=== PATIENT | female | born 1980 | race Caucasian/White ===

== ENCOUNTER 2016-08-31 10:13 | Emergency (ER) | payer MEDICARE, MEDICAID ==
[2016-08-31 11:24] VITALS: BP 135/83
[2016-08-31] MEDS ORDERED: Albuterol/Ipratropium NEB.SOL* Albuterol 2.5 MG/Ipratropium 0.5 MG 3 ML INH ONE (11:45)
[2016-08-31] MEDS ORDERED: Albuterol/Ipratropium NEB.SOL* Albuterol 2.5 MG/Ipratropium 0.5 MG 3 ML ONE (11:47)
--- NOTE | 2016-08-31 12:22 | UC ---
Anabel Bryan SooYoung, scribed for [facility],Jani Martin MD on 08/31/16 at 1143 . Respiratory Complaint HPI - HPI Summary HPI Summary: NOTE: 36 y/o F with cough and sore throat for week. Vital signs stable, afebrile, pulse ox 99. Pt is a recovering alcoholic, former smoker for 6 years. She has a PMHx: asthma, bronchitis, depression. NURSE'S NOTE: c/o coughing for the past week along with feeling feverish. Sorethroat for the past 24 hrs. [ End ] IN ROOM NOTE: A 36 y/o F presents to [facility] with c/o cough onset 4-5 days ago. Associated mild CP, maxT of 100, sore throat, SOB and ears have been "off." Denies n/v/d. PMHx: PNA. - History of Current Complaint Chief Complaint: UCRespiratory Stated Complaint: COUGH FEVER Time Seen by Provider: 08/31/16 11:22 Hx Obtained From: Patient Hx Last Menstrual Period: 08/03/16 Onset/Duration: Lasting Days, Still Present Severity Currently: Moderate Pain Intensity: 0 - denies pain Pain Scale Used: 0-10 Numeric Associated Signs And Symptoms: Positive: Fever - Allergies/Home Medications Allergies/Adverse Reactions: Allergies Allergy/AdvReac Type Severity Reaction Status Date / Time Amoxicillin [From Augmentin] AdvReac Severe Vomiting Verified 06/28/16 14:12 Clavulanic Acid AdvReac Severe Vomiting Verified 06/28/16 14:12 [From Augmentin] Erythromycin AdvReac Severe STOMACH Verified 06/28/16 14:12 CRAMPS, DIARRHEA PMH/Surg Hx/FS Hx/Imm Hx Previously Healthy: No Endocrine History Of: Denies: Diabetes, Thyroid Disease Cardiovascular History Of: Denies: Cardiac Disorders, Hypertension Respiratory History Of: Reports: Asthma, Bronchitis - HX OF, USUALLY OFTEN IN THE WINTER MONTHS Denies: COPD GI/ History Of: Denies: Ulcer Psychological History Of: Reports: Anxiety, Depression - NO MEDS - Surgical History Surgical History: Yes Surgery Procedure, Year, and Place: 4 x cone biopsies in 2013. at age 3 - ear tubes placed (removed later on), UTERINE POLYP TO BE REMOVED ON 05/01/16 - Family History Known Family History: Positive: Unknown - reports None in-room., Hypertension, Diabetes Negative: Seizure Disorder - Social History Occupation: Employed Full-time Lives: With Family Alcohol Use: None Alcohol Amount: STATES SHE IS RECOVERING ALCOHOLIC Substance Use Type: None Substance Use Comment - Amount & Last Used: IN RECOVERY ETOH/Drugs Smoking Status (MU): Former Smoker Type: Cigarettes Amount Used/How Often: 1/2 PPD FOR ABOUT 10 YEARS Length of Time of Smoking/Using Tobacco: 7 years Have You Smoked in the Last Year: No When Did the Patient Quit Smoking/Using Tobacco: 2009 Review of Systems Constitutional: Fever - maxT of 100 Skin: Negative Eyes: Negative ENT: Sore Throat Respiratory: Shortness Of Breath, Cough Cardiovascular: Chest Pain - mild Gastrointestinal: Negative Genitourinary: Negative Motor: Negative Neurovascular: Negative Musculoskeletal: Negative Neurological: Negative Psychological: Negative All Other Systems Reviewed And Are Negative: Yes Physical Exam Triage Information Reviewed: Yes Appearance: Well-Appearing, No Pain Distress, Well-Nourished Vital Signs: Initial Vital Signs Temp 98.7 F 08/31/16 11:19 Pulse 88 08/31/16 11:19 Resp 18 08/31/16 11:19 BP 135/83 08/31/16 11:19 Pulse Ox 99 08/31/16 11:19 Vital Signs Reviewed: Yes Eyes: Positive: Conjunctiva Clear ENT: Positive: Hearing grossly normal, Pharynx normal, TMs normal. Negative: Muffled/hoarse voice Neck: Positive: Supple, Nontender Respiratory: Positive: Chest non-tender, No respiratory distress, Rhonchi - scattered, Expiration - EXTENDED EXPIRATORY PHASE, Other: - NEG: RALES Cardiovascular: Positive: RRR, No Murmur Abdomen Description: Positive: Nontender, No Organomegaly, Soft Bowel Sounds: Positive: Present Musculoskeletal: Positive: Strength Intact, Other: - GOEL Neurological: Positive: Alert Psychological: Positive: Age Appropriate Behavior Skin: Negative: rashes UC Diagnostic Evaluation - Laboratory O2 Sat by Pulse Oximetry: 99 Re-Evaluation - Re-Evaluation 1 Re-Evaluation Time: 12:09 Change: Improved Comment: Reexamined, pt is more comfortable. Lungs are less tight, breathing is easier and exhalation is more audible. No rhonchi or wheezes appreciated. Respiratory Course/Dx - Differential Dx/Diagnosis Differential Diagnosis/HQI/PQRI: Asthma, Bronchitis, Other - PNA Provider Diagnoses: Bronchitis with bronchospasm. Discharge - Discharge Plan Condition: Stable Disposition: HOME Prescriptions: Albuterol 2.5MG/3ML (0.083%)* [Ventolin 2.5 MG/3 ML NEB.BARBARA*] 2.5 mg INH Q6H # 60 neb.[email or web address] DOXYcycline CAP(*) [DOXYcycline 100MG CAP(*)] 100 mg PO BID #14 cap Prednisone 20 mg PO TID #9 tab MDD 3 Spacer/Aerosol-Holding Chamber [Aerochamber Mv] 1 mis XX Q6HR #1 mis Patient Education Materials: Acute Bronchitis (ED), Bronchospasm (ED) Forms: *Work Release Referrals: Vamshi Camarena MD [Primary Care Provider] - Additional Instructions: WE DISCUSSED: 1, You need to grape picker the nebulizer machine. 2. you have bronchitis with bronchospasm: 2 puffs albuteral, 4 times a day; prednisone; doxycyline for 7 days. 3. no work for 2 days. 4. see below instructions. COUGH, CONGESTION of CHEST, SINUSES OR EARS: The most important goal is to liquefy all the phlegm and get it out of your head and chest. Any illness causing cough, congestion, sore throat or sinus discomfort can be helped by doing the following: STAND UNDER SHOWER STREAM TO LOOSEN SECRETIONS. STAY AWAY FROM ANY SMOKE OR IRRITANTS. WHAT ELSE CAN HELP RELIEVE YOUR SYMPTOMS: GENERAL TYPES OF MEDICINE THAT MAY HELP DECONGESTANTS: helps relieve stuffiness and clears sinuses. Pseudoephedrine ( Sudafed or generic) is effective but you need to ask the pharmacist for it because it may be kept behind the counter. ANTIHISTAMINES: are NOT helpful in many colds and flus because they can worsen sore throat, dry eyes and mouth and cause drowsiness. Examples are diphenhydramine, doxylamine and chlorpheniramine. They can help dry you out if you are having profuse, clear drainage from the nose. EXPECTORANTS: helps thin mucous in the nose and chest, making it easier to clear the fluid out. Expectorants are in most combination cough/cold remedies and should be taken with plenty of water. Guaifenesin is the most common expectorant and it comes in pill or liquid form. Mucinex is an extended release form of guaifenesin. COUGH SUPPRESANT: reduces the body's cough reflex. Dextromethorphan is in over the counter products, but sometimes narcotics such as codeine or hydrocodone are used to suppress cough. SPECIFIC MEDICATIONS: The most important goal is to liquefy all the phlegm and get it out of your head and chest: The following medicines (in prescription form or you can buy them without prescription) may help: To help with cough: DEXTROMETHORPHAN (Vicks, Robitussin, Nyquil and other brands) To help break up phlegm: GUAIFENESIN (Mucinex, Robitussin, other brands) To help clear congestion: PSEUDOEPHEDRINE (Sudafed, Dimetapp, other brands) TRY TO CLEAR NOSE: AFRIN NASAL SPRAY: 2-3 SPRAYS PER NOSTRIL, TWICE A DAY FOR TWO DAYS ONLY. USEFUL WAYS TO FEEL BETTER WITHOUT MEDICATIONS: STAND UNDER SHOWER STREAM TO LOOSEN SECRETIONS. USE A VAPORIZOR. STAY AWAY FROM ANY SMOKE OR IRRITANTS. USE SALINE NASAL SPRAY TO KEEP FLOW OF MUCOUS FROM NOSTRILS AND SINUSES. CONSIDER USING NETI POT TO HELP WITH ALLERGIES AND CONGESTION IN THE NOSE. USE THIS THREE TIMES A WEEK. YOU CAN GET THIS AT [employer] IN [place] OR VARIOUS DRUGSTORES. DRINK LOTS OF WARM FLUIDS USEFUL HOME REMEDIES: WARM WATER GARGLES, WITH TSP OF SALT PER 8 OUNCES OF WATER, GARGLE FOR A FEW SECONDS AND SPIT OUT; GARGLE AND SPIT OUT; EVERY THREE HOURS. AND/OR: WARM WATER OR TEA, HONEY AND LEMON; 2-3 CUPS A DAY. FOR SORE THROAT: KEEP THROAT MOIST WITH LOZENGES; TEA AND HONEY. USE WARM WATER GARGLES 3-4 TIMES A DAY. FOLLOW UP: RE-CHECK IN 1O DAYS, NEEDED, IF YOU ARE NOT IMPROVING. RETURN HERE OR SEE YOUR PHYSICIAN. RE-CHECK SOONER IF INCREASED PAIN OR TEMPERATURE. The documentation as recorded by the Anabel montemayor SooYoung accurately reflects the service I personally performed and the decisions made by me, Jani Carlos MD.
== END 2016-08-31 12:27 | disposition home or self-care (01) ==
LOC: UCEAST 10:13
DX: J40 Bronchitis, not specified as acute or chronic (principal)
CPT/HCPCS: 94640; 99212; A9270-GY; G0463

== ENCOUNTER 2016-09-25 19:22 | Emergency (ER) | payer MEDICARE, MEDICAID ==
[2016-09-25 19:57] VITALS: BP 116/61
--- NOTE | 2016-09-25 20:12 | UC ---
Ear Complaint HPI - HPI Summary HPI Summary: ONE WEEK OF SINUS CONGESTION AND PRESSURE, LEFT SIDED EAR ACHE SINCE THIS AFTERNOON; TUBE IN RIGHT EAR FROM SIMILAR OCCURANCE. NO FEVER. - History of Current Complaint Chief Complaint: UCGeneralIllness Stated Complaint: SINUS CONGESTION, AND EAR ACHE Time Seen by Provider: 09/25/16 19:23 Hx Obtained From: Patient Hx Last Menstrual Period: 09/18/16 Onset/Duration: Sudden Onset, Lasting Hours, Still Present Severity Initially: Moderate Severity Currently: Moderate Associated Signs/Symptoms: Positive: URI Symptoms - Allergies/Home Medications Allergies/Adverse Reactions: Allergies Allergy/AdvReac Type Severity Reaction Status Date / Time Amoxicillin [From Augmentin] AdvReac Severe Vomiting Verified 09/25/16 19:49 Clavulanic Acid AdvReac Severe Vomiting Verified 09/25/16 19:49 [From Augmentin] Erythromycin AdvReac Severe STOMACH Verified 09/25/16 19:49 CRAMPS, DIARRHEA PMH/Surg Hx/FS Hx/Imm Hx Previously Healthy: Yes Endocrine History Of: Denies: Diabetes, Thyroid Disease Cardiovascular History Of: Denies: Cardiac Disorders, Hypertension Respiratory History Of: Reports: Asthma, Bronchitis - HX OF, USUALLY OFTEN IN THE WINTER MONTHS Denies: COPD GI/ History Of: Denies: Ulcer Psychological History Of: Reports: Anxiety, Depression - NO MEDS - Surgical History Surgical History: Yes Surgery Procedure, Year, and Place: 4 x cone biopsies in 2013. at age 3 - ear tubes placed (removed later on), UTERINE POLYP TO BE REMOVED ON 05/01/16 - Family History Known Family History: Positive: Unknown - reports None in-room., Hypertension, Diabetes Negative: Seizure Disorder - Social History Occupation: Employed Full-time Lives: With Family Alcohol Use: None Alcohol Amount: STATES SHE IS RECOVERING ALCOHOLIC Substance Use Type: None Substance Use Comment - Amount & Last Used: IN RECOVERY ETOH/Drugs Smoking Status (MU): Former Smoker Type: Cigarettes Amount Used/How Often: 1/2 PPD FOR ABOUT 10 YEARS Length of Time of Smoking/Using Tobacco: 7 years Have You Smoked in the Last Year: No When Did the Patient Quit Smoking/Using Tobacco: 2009 Review of Systems Constitutional: Negative Skin: Negative Eyes: Negative ENT: Ear Ache, Nasal Discharge Respiratory: Negative Cardiovascular: Negative Gastrointestinal: Negative Genitourinary: Negative Motor: Negative Neurovascular: Negative Musculoskeletal: Negative Neurological: Negative Psychological: Negative All Other Systems Reviewed And Are Negative: Yes Physical Exam Triage Information Reviewed: Yes Appearance: Well-Appearing, No Pain Distress, Well-Nourished Vital Signs: Initial Vital Signs Temp 97.7 F 09/25/16 19:50 Pulse 85 09/25/16 19:50 Resp 18 09/25/16 19:50 BP 116/61 09/25/16 19:50 Pulse Ox 98 09/25/16 19:50 Vital Signs Reviewed: Yes Eye Exam: Normal Eyes: Positive: Conjunctiva Clear ENT: Positive: Hearing grossly normal, Pharynx normal, TM bulging, TM dull, TM red Dental Exam: Normal Neck exam: Normal Respiratory Exam: Normal Respiratory: Positive: Chest non-tender, Lungs clear, Normal breath sounds, No respiratory distress Cardiovascular Exam: Normal Cardiovascular: Positive: RRR, No Murmur, Pulses Normal Abdominal Exam: Normal Abdomen Description: Positive: Nontender, No Organomegaly Musculoskeletal Exam: Normal Musculoskeletal: Positive: Strength Intact, ROM Intact Neurological Exam: Normal Psychological Exam: Normal Psychological: Positive: Normal Response To Family Skin Exam: Normal Ear Complaint Course/Dx - Differential Dx/Diagnosis Differential Diagnosis/HQI/PQRI: Otitis Externa, Otitis Media, Perforated TM, URI Provider Diagnoses: SINUSITIS. OTITIS MEDIA Discharge - Discharge Plan Condition: Stable Disposition: HOME Prescriptions: Azithromycin TAB* [Zithromax TAB (Z-KANE) 250 mg #6 tabs] 250 mg PO DAILY #6 tab Patient Education Materials: Sinusitis (ED), Otitis Media (ED) Referrals: Vamshi Camarena MD [Primary Care Provider] -
== END 2016-09-25 20:15 | disposition home or self-care (01) ==
LOC: UCEAST 19:22
DX: J32.9 Chronic sinusitis, unspecified (principal); H66.92 Otitis media, unspecified, left ear; Z88.1 Allergy status to other antibiotic agents; Z88.0 Allergy status to penicillin; Z87.891 Personal history of nicotine dependence
CPT/HCPCS: 99212; G0463

== ENCOUNTER 2016-11-20 11:09 | Emergency (ER) | payer MEDICARE, MEDICAID ==
[2016-11-20 11:48] VITALS: BP 136/74
[2016-11-20] MEDS ORDERED: Albuterol/Ipratropium NEB.SOL* Albuterol 2.5 MG/Ipratropium 0.5 MG 3 ML INH ONE (13:23)
--- NOTE | 2016-11-20 14:29 | UC ---
Throat Pain/Nasal Pete HPI - HPI Summary HPI Summary: COUGH AND SINUS PRESSURE SINCE 11/16/16. HISTORY OF ASTHMA. NO FEVER. NO RASHES, NO SORE THROAT. NO ABDOMINAL PAIN - History of Current Complaint Chief Complaint: UCRespiratory Stated Complaint: SINUS ISSUE SOB ASTHMA Time Seen by Provider: 11/20/16 12:28 Hx Obtained From: Patient Hx Last Menstrual Period: 2 wks ago Onset/Duration: Gradual Onset, Lasting Days, Still Present Severity: Moderate Pain Intensity: 3 Pain Scale Used: 0-10 Numeric Cough: Nonproductive Associated Signs & Symptoms: Positive: Hoarseness, Sinus Discomfort, Nasal Discharge - Epiglottits Risk Factors Epiglottis Risk Factors: Negative - Allergies/Home Medications Allergies/Adverse Reactions: Allergies Allergy/AdvReac Type Severity Reaction Status Date / Time Amoxicillin [From Augmentin] AdvReac Severe Vomiting Verified 11/20/16 11:49 Clavulanic Acid AdvReac Severe Vomiting Verified 11/20/16 11:49 [From Augmentin] Erythromycin AdvReac Severe STOMACH Verified 11/20/16 11:49 CRAMPS, DIARRHEA PMH/Surg Hx/FS Hx/Imm Hx Previously Healthy: Yes Endocrine History Of: Denies: Diabetes, Thyroid Disease Cardiovascular History Of: Denies: Cardiac Disorders, Hypertension Respiratory History Of: Reports: Asthma, Bronchitis - HX OF, USUALLY OFTEN IN THE WINTER MONTHS Denies: COPD GI/ History Of: Denies: Ulcer Psychological History Of: Reports: Anxiety, Depression - NO MEDS - Surgical History Surgical History: Yes Surgery Procedure, Year, and Place: 4 x cone biopsies in 2013. at age 3 - ear tubes placed (removed later on), UTERINE POLYP TO BE REMOVED ON 05/01/16 - Family History Known Family History: Positive: Unknown - reports None in-room., Hypertension, Diabetes Negative: Seizure Disorder - Social History Occupation: Employed Full-time Lives: With Family Alcohol Use: None Alcohol Amount: STATES SHE IS RECOVERING ALCOHOLIC Substance Use Type: None Substance Use Comment - Amount & Last Used: IN RECOVERY ETOH/Drugs Smoking Status (MU): Former Smoker Type: Cigarettes Amount Used/How Often: 1/2 PPD FOR ABOUT 10 YEARS Length of Time of Smoking/Using Tobacco: 7 years Have You Smoked in the Last Year: No When Did the Patient Quit Smoking/Using Tobacco: 2009 Review of Systems Constitutional: Negative Skin: Negative Eyes: Negative ENT: Ear Ache, Nasal Discharge Respiratory: Cough Cardiovascular: Negative Gastrointestinal: Negative Genitourinary: Negative Motor: Negative Neurovascular: Negative Musculoskeletal: Negative Neurological: Negative Psychological: Negative All Other Systems Reviewed And Are Negative: Yes Physical Exam Triage Information Reviewed: Yes Appearance: No Pain Distress, Well-Nourished, Ill-Appearing - MILD Vital Signs: Initial Vital Signs Temp 98.4 F 11/20/16 11:44 Pulse 90 11/20/16 11:44 Resp 18 11/20/16 11:44 BP 136/74 11/20/16 11:44 Pulse Ox 100 11/20/16 11:44 Eye Exam: Normal ENT: Positive: Hearing grossly normal, TM bulging, TM dull Dental Exam: Normal Neck exam: Normal Neck: Positive: Supple, Nontender, No Lymphadenopathy Respiratory Exam: Normal Respiratory: Positive: Chest non-tender, Lungs clear, Normal breath sounds, No respiratory distress, No accessory muscle use Cardiovascular Exam: Normal Cardiovascular: Positive: RRR Abdominal Exam: Normal Abdomen Description: Positive: Nontender, No Organomegaly Musculoskeletal Exam: Normal Musculoskeletal: Positive: Strength Intact, ROM Intact Neurological Exam: Normal Psychological Exam: Normal Psychological: Positive: Normal Response To Family Skin Exam: Normal Throat Pain/Nasal Course/Dx - Differential Dx/Diagnosis Differential Diagnosis/HQI/PQRI: Pharyngitis, Sinusitis, URI Provider Diagnoses: SINUSITIS Discharge - Discharge Plan Condition: Stable Disposition: HOME Prescriptions: DOXYcycline CAP(*) [DOXYcycline 100MG CAP(*)] 100 mg PO BID #20 cap Patient Education Materials: Sinusitis (ED) Forms: *Work Release Referrals: Vamshi Camarena MD [Primary Care Provider] -
== END 2016-11-20 14:05 | disposition home or self-care (01) ==
LOC: UCEAST 11:09
DX: J02.9 Acute pharyngitis, unspecified (principal); J06.9 Acute upper respiratory infection, unspecified; J45.909 Unspecified asthma, uncomplicated; Z87.891 Personal history of nicotine dependence; Z88.1 Allergy status to other antibiotic agents
CPT/HCPCS: 99212; A9270-GY; G0463

== ENCOUNTER 2016-12-25 09:12 | Emergency (ER) | payer MEDICARE, MEDICAID ==
--- NOTE | 2016-12-25 11:39 | UC ---
Minor Trauma HPI - HPI Summary HPI Summary: While walking on sidewalk pt tripped over young daughter and fell forward, injuring R knee and L thumb. Mostly wants a work note, but having trouble walking. - History of Current Complaint Chief Complaint: UCLowerExtremity Stated Complaint: FELL-RT KNEE, LT THUMB INJ Time Seen by Provider: 12/25/16 11:27 Hx Obtained From: Patient Hx Last Menstrual Period: 12/17/16 ?: No Onset/Duration: Sudden Onset Onset Of Pain: Immediate Severity Initially: Moderate Severity Currently: Moderate Mechanism Of Injury: Fall From A Standing Position Aggravating Factor(s): Ambulation Alleviating Factor(s): Rest Associated Signs And Symptoms: Negative: Loss Of Consciousness, Ecchymosis, Swelling - Allergies/Home Medications Allergies/Adverse Reactions: Allergies Allergy/AdvReac Type Severity Reaction Status Date / Time Amoxicillin [From Augmentin] AdvReac Severe Vomiting Verified 12/25/16 09:26 Clavulanic Acid AdvReac Severe Vomiting Verified 12/25/16 09:26 [From Augmentin] Erythromycin AdvReac Severe STOMACH Verified 12/25/16 09:26 CRAMPS, DIARRHEA Home Medications: Home Medications Ibuprofen [Ibuprofen 200 MG] 400 mg PO Q6H PRN 12/25/16 [History Confirmed 12/25] PMH/Surg Hx/FS Hx/Imm Hx Endocrine History Of: Denies: Diabetes, Thyroid Disease Cardiovascular History Of: Denies: Cardiac Disorders, Hypertension Respiratory History Of: Reports: Asthma, Bronchitis - HX OF, USUALLY OFTEN IN THE WINTER MONTHS Denies: COPD GI/ History Of: Denies: Ulcer Psychological History Of: Reports: Anxiety, Depression - NO MEDS - Surgical History Surgical History: Yes Surgery Procedure, Year, and Place: 5x colon biopsies in 2013. at age 3 - ear tubes placed (removed later on), UTERINE POLYP - Family History Known Family History: Positive: Unknown - reports None in-room., Hypertension, Diabetes Negative: Seizure Disorder - Social History Occupation: Employed Part-time Lives: With Family Alcohol Use: None Alcohol Amount: STATES SHE IS RECOVERING ALCOHOLIC Substance Use Type: None Substance Use Comment - Amount & Last Used: IN RECOVERY ETOH/Drugs Smoking Status (MU): Former Smoker Type: Cigarettes Amount Used/How Often: 1/2 PPD FOR ABOUT 10 YEARS Length of Time of Smoking/Using Tobacco: 7 years Have You Smoked in the Last Year: No When Did the Patient Quit Smoking/Using Tobacco: 2009 Review of Systems Constitutional: Negative Skin: Negative Eyes: Negative ENT: Negative Respiratory: Negative Cardiovascular: Negative Gastrointestinal: Negative Genitourinary: Negative Motor: Negative Neurovascular: Negative Musculoskeletal: Arthralgia Neurological: Negative Psychological: Negative All Other Systems Reviewed And Are Negative: Yes Physical Exam Triage Information Reviewed: Yes Appearance: Well-Appearing, Well-Nourished, Pain Distress - with movement Vital Signs: Initial Vital Signs Temp 97.3 F 12/25/16 09:20 Pulse 84 12/25/16 09:20 Resp 16 12/25/16 09:20 BP 120/77 12/25/16 09:20 Pulse Ox 98 12/25/16 09:20 Vital Signs Reviewed: Yes Eye Exam: Normal Eyes: Positive: Conjunctiva Clear ENT: Positive: Pharynx normal, Other: - PE tubes in place bilat Dental Exam: Other - edentulous Neck exam: Normal Neck: Positive: Supple, Nontender, No Lymphadenopathy Respiratory Exam: Normal Respiratory: Positive: Chest non-tender, Lungs clear, Normal breath sounds, No respiratory distress, No accessory muscle use Cardiovascular Exam: Normal Cardiovascular: Positive: RRR, No Murmur Musculoskeletal Exam: Other - Tender over R patella Musculoskeletal: Positive: ROM Limited @ - L thumb, R knww Neurological Exam: Normal Neurological: Positive: Alert Psychological Exam: Normal Skin Exam: Other - abrasions to R knee Minor Trauma Course/Dx - Differential Dx/Diagnosis Provider Diagnoses: R knee contusion. L thumb sprain Discharge - Discharge Plan Condition: Stable Disposition: HOME Patient Education Materials: Contusion in Adults (ED), Finger Sprain (ED) Forms: *Work Release Referrals: Vamshi Camarena MD [Primary Care Provider] - 2 Weeks Additional Instructions: If you do not have full improvement in the next 7-10 days, please follow up with your primary care provider.
[2016-12-25 11:56] VITALS: BP 124/73
--- NOTE | 2016-12-25 12:03 | RAD ---
HISTORY: Left hand trauma COMPARISONS: None VIEWS: 3, Frontal, lateral, and oblique views of the first digit of the left hand FINDINGS: BONE DENSITY: Normal. BONES: There is no displaced fracture. JOINTS: There is no arthropathy. ALIGNMENT: There is no dislocation. SOFT TISSUES: Unremarkable. OTHER FINDINGS: None. IMPRESSION: NO ACUTE OSSEOUS INJURY. IF SYMPTOMS PERSIST, RECOMMEND REPEAT IMAGING.
--- NOTE | 2016-12-25 12:04 | RAD ---
HISTORY: Right knee trauma COMPARISONS: February 22, 2012 VIEWS: 4, Frontal, lateral, axial, and oblique views of the right knee FINDINGS: BONE DENSITY: Normal. BONES: There is no displaced fracture. 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 There is no suprapatellar joint effusion or lipohemarthrosis. ALIGNMENT: There is no dislocation. SOFT TISSUES: Unremarkable. OTHER FINDINGS: None. IMPRESSION: NO ACUTE OSSEOUS INJURY. IF SYMPTOMS PERSIST, RECOMMEND REPEAT IMAGING.
== END 2016-12-25 12:12 | disposition home or self-care (01) ==
LOC: UCEAST 09:12
DX: S80.01XA Contusion of right knee, initial encounter (principal); S63.602A Unspecified sprain of left thumb, initial encounter; W01.0XXA Fall on same level from slipping, tripping and stumbling without subsequent striking against object, initial encounter; Y93.01 Activity, walking, marching and hiking; Y92.480 Sidewalk as the place of occurrence of the external cause; Z88.1 Allergy status to other antibiotic agents; F41.8 Other specified anxiety disorders; Z87.891 Personal history of nicotine dependence
CPT/HCPCS: 99213; G0463

== ENCOUNTER 2017-03-16 10:35 | Emergency (ER) | payer MEDICARE, MEDICAID ==
[2017-03-16 10:41] VITALS: BP 114/75
[2017-03-16] MEDS ORDERED: Ibuprofen TAB* 200 MG PO ONE (11:09)
--- NOTE | 2017-03-16 11:19 | UC ---
Ear Complaint HPI - HPI Summary HPI Summary: Pt present with pain and pressure in right ear increasing x 3 days, nasal congestion. Pt reports tactile temp. Pt has taken Motrin with mild relief. pt reports frontal and max harrison. no vision changes. no n/v/d. Pt with h/o recurrent OM - states feels similar. No cp, sob. no cough. No sore throat. 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 - History of Current Complaint Chief Complaint: UCEar Stated Complaint: EAR PAIN Time Seen by Provider: 03/16/17 10:49 Hx Obtained From: Patient Hx Last Menstrual Period: 03/10/17 ?: No Onset/Duration: Gradual Onset Severity Initially: Mild Severity Currently: Moderate Pain Intensity: 5 Pain Scale Used: 0-10 Numeric Alleviating Factors: OTC Meds - Motri n - Allergies/Home Medications Allergies/Adverse Reactions: Allergies Allergy/AdvReac Type Severity Reaction Status Date / Time Amoxicillin [From Augmentin] AdvReac Severe Vomiting Verified 03/16/17 10:41 Clavulanic Acid AdvReac Severe Vomiting Verified 03/16/17 10:41 [From Augmentin] Erythromycin AdvReac Severe STOMACH Verified 03/16/17 10:41 CRAMPS, DIARRHEA PMH/Surg Hx/FS Hx/Imm Hx Previously Healthy: Yes Respiratory History: Asthma Cancer History: Cervical Cancer Other Cancer History: cervical - Surgical History Surgical History: Yes Surgery Procedure, Year, and Place: 5x colon biopsies in 2013. at age 3 - ear tubes placed (removed later on), UTERINE POLYP - Family History Known Family History: Positive: Hypertension, Diabetes Negative: Seizure Disorder - Social History Occupation: Employed Full-time Lives: With Family Alcohol Use: None Alcohol Amount: STATES SHE IS RECOVERING ALCOHOLIC Substance Use Type: None, Marijuana - h/o Substance Use Comment - Amount & Last Used: IN RECOVERY ETOH/Drugs Smoking Status (MU): Former Smoker Type: Cigarettes Amount Used/How Often: 1/2 PPD FOR ABOUT 10 YEARS Length of Time of Smoking/Using Tobacco: 7 years Have You Smoked in the Last Year: No When Did the Patient Quit Smoking/Using Tobacco: 2009 Review of Systems Constitutional: Negative Skin: Negative Eyes: Negative ENT: Ear Ache, Sinus Congestion, Sinus Pain/Tenderness Respiratory: Negative Cardiovascular: Negative Gastrointestinal: Negative Genitourinary: Negative Motor: Negative Neurovascular: Negative Musculoskeletal: Negative Neurological: Negative Psychological: Negative All Other Systems Reviewed And Are Negative: Yes Physical Exam Triage Information Reviewed: Yes Appearance: Well-Appearing, No Pain Distress, Well-Nourished Vital Signs: Initial Vital Signs Temp 97.0 F 03/16/17 10:36 Pulse 103 03/16/17 10:36 Resp 18 03/16/17 10:36 BP 114/75 03/16/17 10:36 Pulse Ox 100 03/16/17 10:36 Vital Signs Reviewed: Yes Eye Exam: Normal Eyes: Positive: Conjunctiva Clear. Negative: Discharge ENT: Positive: Hearing grossly normal, Pharynx normal, Nasal congestion, Other: - right TM - tympanostomy tube lying in external end of canal removed with alligator forceps TM examined + erythema, left TM wnl + TTPM max sinus + fluid turbinates inflammed and boggy + PND mmoist No exudate Dental Exam: Normal Neck exam: Normal Neck: Positive: Supple Respiratory Exam: Normal Respiratory: Positive: Chest non-tender, Lungs clear, Normal breath sounds Cardiovascular Exam: Normal Cardiovascular: Positive: RRR, No Murmur Abdominal Exam: Normal Abdomen Description: Positive: Nontender, No Organomegaly Musculoskeletal Exam: Normal Neurological Exam: Normal Psychological Exam: Normal Skin Exam: Normal Ear Complaint Course/Dx - Course Course Of Treatment: Pt with right OM and sinusitis. Pt with tymponsomty tube loose in canal - removed with alligator forceps without difficulty. Will start omnicef (amox causes vomiting only). flonase. motrin/apap. hydrate. rest. pcp f/u - Differential Dx/Diagnosis Provider Diagnoses: foreign body ear. otitis media. sinusitis Discharge - Discharge Plan Condition: Stable Disposition: HOME Prescriptions: Cefdinir [Cefdinir 300 MG CAP] 300 mg PO BID #20 cap Fluticasone NASAL * [Flonase *] 2 spray BOTH NARES DAILY #1 spray Patient Education Materials: Sinusitis (ED), Otitis Media (ED) Forms: *Work Release Referrals: Vamshi Camarena MD [Primary Care Provider] - Additional Instructions: - Stay well hydrated. Drink plenty of non-alcoholic, non-caffinated beverages. - Take antibiotics as prescribed until gone - USe nasal spray as prescribed - After you have been on antibiotics for 2 days - change your toothbrush and your pillowcase. These infections are spread by secretions - do NOT share eating or drinking utensils - clean items you share with other people such as cell phones, computer mouse, TV remote, computer tablets, etc - Alternate ibuprofen (Advil, Motrin) 600mg and Tylenol every 3 hours for pain or fever. Take with food. Do NOT take for more than 4-5 days. - Call your doctor to schedule a follow-up appointment. Contact your doctor or return with questions or concerns
== END 2017-03-16 11:16 | disposition home or self-care (01) ==
LOC: UCEAST 10:35
DX: T16.1XXA Foreign body in right ear, initial encounter (principal); H66.91 Otitis media, unspecified, right ear; J32.9 Chronic sinusitis, unspecified; Z87.891 Personal history of nicotine dependence; F10.21 Alcohol dependence, in remission
CPT/HCPCS: 99212; A9270-GY; G0463

== ENCOUNTER 2017-04-05 18:36 | Emergency (ER) | payer MEDICARE, MEDICAID ==
[2017-04-05 18:46] VITALS: BP 132/80
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
== END 2017-04-05 20:10 | disposition home or self-care (01) ==
LOC: UCEAST 18:36
DX: J32.9 Chronic sinusitis, unspecified (principal); H66.91 Otitis media, unspecified, right ear; G80.9 Cerebral palsy, unspecified; J45.909 Unspecified asthma, uncomplicated; Z87.440 Personal history of urinary (tract) infections; Z88.3 Allergy status to other anti-infective agents; F41.9 Anxiety disorder, unspecified; F32.9 Major depressive disorder, single episode, unspecified; Z87.891 Personal history of nicotine dependence
CPT/HCPCS: 99212; G0463

== ENCOUNTER 2017-05-24 17:14 | Emergency (ER) | payer MEDICARE, MEDICAID ==
[2017-05-24 17:40] VITALS: BP 119/52
[2017-05-24] MEDS ORDERED: Ipratropium 0.5MG/2.5ML NEB* 0.5 MG/2.5 ML NEB.SOLN INH ONE (18:46)
[2017-05-24] MEDS ORDERED: Albuterol 2.5 MG/3 ML NEB.SOL* (0.083%) INH ONE ×2 (18:46→18:51)
[2017-05-24] MEDS ORDERED: predniSONE TAB* 20 MG PO ONE (18:51)
--- NOTE | 2017-05-24 18:55 | UC ---
Respiratory Complaint HPI - HPI Summary HPI Summary: 37 yo female with cough/wheezing x 3 days - History of Current Complaint Chief Complaint: UCRespiratory Stated Complaint: COUGH,ASTHMA,CONGESTION Time Seen by Provider: 05/24/17 18:42 Hx Obtained From: Patient Hx Last Menstrual Period: 04/30/17 Onset/Duration: Gradual Onset Timing: Constant Severity Initially: Moderate Severity Currently: Moderate Pain Intensity: 2 Character: Cough: Productive Aggravating Factors: Exertion, Deep Breaths Alleviating Factors: Bronchodilator Associated Signs And Symptoms: Positive: Wheezing, Nasal Congestion, Hoarseness - Allergies/Home Medications Allergies/Adverse Reactions: Allergies Allergy/AdvReac Type Severity Reaction Status Date / Time Amoxicillin [From Augmentin] AdvReac Severe Vomiting Verified 05/24/17 17:41 Clavulanic Acid AdvReac Severe Vomiting Verified 05/24/17 17:41 [From Augmentin] Erythromycin AdvReac Severe STOMACH Verified 05/24/17 17:41 CRAMPS, DIARRHEA PMH/Surg Hx/FS Hx/Imm Hx Previously Healthy: Yes Respiratory History: Asthma, Bronchitis - Surgical History Surgical History: Yes Surgery Procedure, Year, and Place: 5x colon biopsies in 2013. at age 3 - ear tubes placed (removed later on), UTERINE POLYP - Family History Known Family History: Positive: Hypertension, Diabetes Negative: Seizure Disorder - Social History Alcohol Use: None Alcohol Amount: STATES SHE IS RECOVERING ALCOHOLIC off for over 10 years now Substance Use Type: None Substance Use Comment - Amount & Last Used: former marijuana Smoking Status (MU): Former Smoker Type: Cigarettes Amount Used/How Often: 1/2 PPD FOR ABOUT 10 YEARS Length of Time of Smoking/Using Tobacco: 7 years Have You Smoked in the Last Year: No When Did the Patient Quit Smoking/Using Tobacco: 2009 Review of Systems Constitutional: Negative Skin: Negative Eyes: Negative ENT: Nasal Discharge Respiratory: Cough Cardiovascular: Negative Gastrointestinal: Negative Genitourinary: Negative Motor: Negative Neurovascular: Negative Musculoskeletal: Negative Neurological: Negative Psychological: Negative Is Patient Immunocompromised?: No All Other Systems Reviewed And Are Negative: Yes Physical Exam Triage Information Reviewed: Yes Appearance: Well-Appearing, No Pain Distress, Well-Nourished Vital Signs: Initial Vital Signs Temp 97.5 F 05/24/17 17:38 Pulse 105 05/24/17 17:38 Resp 18 05/24/17 17:38 BP 119/52 05/24/17 17:38 Pulse Ox 100 05/24/17 17:38 Eye Exam: Normal ENT: Positive: Hearing grossly normal, Nasal congestion. Negative: TMs normal - both TMs scarred, Tonsillar swelling, Tonsillar exudate, Trismus, Muffled/ hoarse voice Dental: Positive: Other: - no upper teeth Neck: Positive: Supple, Nontender, No Lymphadenopathy Respiratory: Positive: No respiratory distress, No accessory muscle use, Wheezing Cardiovascular: Positive: RRR, No Murmur, Tachycardia Musculoskeletal: Positive: ROM Intact, No Edema Neurological: Positive: Alert Psychological Exam: Normal Skin Exam: Normal UC Diagnostic Evaluation - Laboratory O2 Sat by Pulse Oximetry: 100 - normal/not hypoxic Re-Evaluation - Re-Evaluation First Eval Re-Evaluation Time: 19:13 Change: Improved - subjectively much improved/wheezes deminished Respiratory Course/Dx - Differential Dx/Diagnosis Provider Diagnoses: acute bronchitis with bronchospasm Discharge - Discharge Plan Condition: Stable Disposition: HOME Prescriptions: Amoxicillin PO (*) [Amoxicillin 875 MG (*)] 875 mg PO BID #20 tab Prednisone [Deltasone] 40 mg PO DAILY #10 tab Patient Education Materials: Acute Bronchitis (ED) Forms: *Work Release Referrals: Vamshi Camarena MD [Primary Care Provider] - 4 Days (if not better)
== END 2017-05-24 19:28 | disposition home or self-care (01) ==
LOC: UCEAST 17:14
DX: J20.9 Acute bronchitis, unspecified (principal); Z88.1 Allergy status to other antibiotic agents; Z88.8 Allergy status to other drugs, medicaments and biological substances
CPT/HCPCS: 99212; G0463; J7512; J7644

== ENCOUNTER 2017-06-25 13:34 | Emergency (ER) | payer MEDICARE, MEDICAID ==
[2017-06-25 13:48] VITALS: BP 122/75
--- NOTE | 2017-06-25 14:00 | UC ---
UC General HPI - HPI Summary HPI Summary: 1. ONSET OF DYSURIA AND FREQUENCY YESTERDAY. NO FEVER, BACK PAIN OR NAUSEA. 2. 2 WEEKS OF PAINFUL RED AREA ON LEFT CALF. HAS BEEN SOAKING IT. NO DRAINAGE. NO FEVER. IS TENDER. 3. 5 DAYS OF COUGH AND CONGESTION. NO FEVER, ST, EAR PAIN, N/V/D. - History of Current Complaint Chief Complaint: UCSkin Stated Complaint: COUGH,BOIL ON LEG,POSS UTI Time Seen by Provider: 06/25/17 13:48 Hx Obtained From: Patient Hx Last Menstrual Period: 05/24/17 Onset/Duration: Gradual Onset Timing: Constant Onset Severity: Moderate Current Severity: Moderate Pain Intensity: 5 - Allergy/Home Medications Allergies/Adverse Reactions: Allergies Allergy/AdvReac Type Severity Reaction Status Date / Time Amoxicillin [From Augmentin] AdvReac Severe Vomiting Verified 06/25/17 13:38 Clavulanic Acid AdvReac Severe Vomiting Verified 06/25/17 13:38 [From Augmentin] Erythromycin AdvReac Severe STOMACH Verified 06/25/17 13:38 CRAMPS, DIARRHEA PMH/Surg Hx/FS Hx/Imm Hx - Additional Past Medical History Additional PMH: CEREBRAL PALSY - MILD Respiratory History: Asthma Psychological History: Depression - Surgical History Surgical History: Yes Surgery Procedure, Year, and Place: 5x colon biopsies in 2013. at age 3 - ear tubes placed (removed later on), UTERINE POLYP - Family History Known Family History: Positive: Hypertension, Diabetes Negative: Seizure Disorder - Social History Alcohol Use: None Alcohol Amount: STATES SHE IS RECOVERING ALCOHOLIC off for over 10 years now Substance Use Type: None Substance Use Comment - Amount & Last Used: former marijuana Smoking Status (MU): Former Smoker Type: Cigarettes Amount Used/How Often: 1/2 PPD FOR ABOUT 10 YEARS Length of Time of Smoking/Using Tobacco: 7 years Have You Smoked in the Last Year: No When Did the Patient Quit Smoking/Using Tobacco: 2009 - Immunization History Most Recent Influenza Vaccination: 2016 Review of Systems Constitutional: Negative Skin: Other - ABSCESS ENT: Nasal Discharge Respiratory: Cough Cardiovascular: Negative Gastrointestinal: Negative Genitourinary: Dysuria, Frequency, Urgency All Other Systems Reviewed And Are Negative: Yes Physical Exam Triage Information Reviewed: Yes Appearance: Well-Appearing, No Pain Distress, Well-Nourished Vital Signs: Initial Vital Signs Temp 97.4 F 06/25/17 13:39 Pulse 94 06/25/17 13:39 Resp 18 06/25/17 13:39 BP 122/75 06/25/17 13:39 Pulse Ox 100 06/25/17 13:39 Vital Signs Reviewed: Yes Eyes: Positive: Conjunctiva Clear ENT: Positive: Hearing grossly normal, Pharynx normal, TMs normal Neck: Positive: Supple, Nontender, No Lymphadenopathy Respiratory Exam: Normal Cardiovascular Exam: Normal Abdomen Description: Positive: Nontender, Soft. Negative: CVA Tenderness (R), CVA Tenderness (L), Distended, Guarding Musculoskeletal: Positive: No Edema Neurological: Positive: Alert Psychological: Positive: Age Appropriate Behavior Skin: Positive: Other - 5CM X 4CM AREA OF ERYTHEMA LEFT CALF WITH CENTRAL AREA OF INDURATION. NO FLUCTUANCE OR DRAINAGE. IS TTP. Diagnostics - Laboratory Diagnostic Studies Completed/Ordered: URINE DIP SP. GR. 1.025, 1+ LEUKS, TRACE BLOOD Course/Dx - Differential Dx - Multi-Symptom Provider Diagnoses: 1. UTI. 2. ABSCESS LEFT CALF. 3. ACUTE URI Discharge - Discharge Plan Condition: Stable Disposition: HOME Prescriptions: Sulfamethox/Trimethoprim DS* [Bactrim DS 800/160 TAB*] 1 tab PO BID #14 tab Patient Education Materials: Urinary Tract Infection in Women (ED), Upper Respiratory Infection (ED), Abscess (ED) Forms: *Work Release Referrals: Vamshi Camarena MD [Primary Care Provider] - If Needed Additional Instructions: URINE SENT FOR CULTURE. WE WILL CALL YOU IF WE NEED TO CHANGE YOUR MEDICATION. BE SURE TO STAY WELL HYDRATED. THE ANTIBIOTIC SHOULD ALSO COVER FOR YOUR ABSCESS. IT IS NOT CURRENTLY SUITABLE FOR DRAINAGE. WARM/HOT COMPRESSES/SOAKS AT LEAST 4 TIMES DAILY. YOUR UPPER RESPIRATORY SYMPTOMS ARE LIKELY VIRALLY MEDIATED AND SHOULD RESOLVE ON THEIR OWN WITH TIME. REST, HYDRATE, OTC MEDS NEEDED. TAKE THE BACTRIM PRESCRIBED FOR YOUR OTHER CONDITIONS. SEEK FOLLOW-UP IF YOU ARE NOT IMPROVING OVER THE NEXT 1-2 WEEKS.
== END 2017-06-25 14:20 | disposition home or self-care (01) ==
LOC: UCEAST 13:34
DX: N39.0 Urinary tract infection, site not specified (principal); B96.20 Unspecified Escherichia coli [E. coli] as the cause of diseases classified elsewhere; L02.416 Cutaneous abscess of left lower limb; J06.9 Acute upper respiratory infection, unspecified; G80.9 Cerebral palsy, unspecified; J45.909 Unspecified asthma, uncomplicated; F32.9 Major depressive disorder, single episode, unspecified; Z88.1 Allergy status to other antibiotic agents; Z87.891 Personal history of nicotine dependence
CPT/HCPCS: 81003; 87077; 87086; 87186; 99212; G0463

== ENCOUNTER 2017-08-18 09:39 | Emergency (ER) | payer MEDICARE, MEDICAID ==
--- NOTE | 2017-08-18 10:53 | UC ---
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 [email or web address] -no known injury on Wednesday (2 days ago) had pain in knee with swelling - History of Current Complaint Hx Obtained From: Patient Hx Last Menstrual Period: 05/24/17 ?: No Onset/Duration: Sudden Onset, Lasting Days - 2 Severity Initially: Moderate Severity Currently: Moderate Character: Aching Aggravating Factor(s): Movement, Weight Bearing Alleviating Factor(s): Rest, Position Associated Signs And Symptoms: Positive: Negative Able to Bear Weight: Yes <Lisa Spencer - Last Filed: 08/19/17 21:59> <Kirstie Dumont - Last Filed: 08/20/17 08:47> - History of Current Complaint Chief Complaint: UCLowerExtremity Stated Complaint: RIGHT KNEE SWOLLEN Time Seen by Provider: 08/18/17 10:46 - Allergies/Home Medications Allergies/Adverse Reactions: Allergies Allergy/AdvReac Type Severity Reaction Status Date / Time Amoxicillin [From Augmentin] AdvReac Severe Vomiting Verified 08/18/17 10:01 Clavulanic Acid AdvReac Severe Vomiting Verified 08/18/17 10:01 [From Augmentin] Erythromycin AdvReac Severe STOMACH Verified 08/18/17 10:01 CRAMPS, DIARRHEA PMH/Surg Hx/FS Hx/Imm Hx Previously Healthy: Yes - Surgical History Surgical History: Yes Surgery Procedure, Year, and Place: 5x colon biopsies in 2013. at age 3 - ear tubes placed (removed later on), UTERINE POLYP - Family History Known Family History: Positive: Hypertension, Diabetes Negative: Seizure Disorder - Social History Occupation: Employed Full-time Lives: With Family Alcohol Use: None Alcohol Amount: hx of etoh abuse Substance Use Type: None Substance Use Comment - Amount & Last Used: former marijuana Smoking Status (MU): Former Smoker Type: Cigarettes Amount Used/How Often: 1/2 PPD FOR ABOUT 10 YEARS Length of Time of Smoking/Using Tobacco: 7 years Have You Smoked in the Last Year: No When Did the Patient Quit Smoking/Using Tobacco: 2009 - Immunization History Most Recent Influenza Vaccination: 2015 <Lisa Spencer - Last Filed: 08/19/17 21:59> Review of Systems Constitutional: Negative Skin: Negative Eyes: Negative ENT: Negative Respiratory: Negative Cardiovascular: Negative Gastrointestinal: Negative Genitourinary: Negative Motor: Negative Neurovascular: Negative Musculoskeletal: Arthralgia - left knee Neurological: Negative Psychological: Negative Is Patient Immunocompromised?: No All Other Systems Reviewed And Are Negative: Yes <Lisa Spencer - Last Filed: 08/19/17 21:59> Physical Exam Triage Information Reviewed: Yes Appearance: Well-Appearing, No Pain Distress, Obese Vital Signs: Initial Vital Signs Temp 98 F 08/18/17 10:03 Pulse 80 08/18/17 10:03 Resp 16 08/18/17 10:03 BP 114/54 08/18/17 10:03 Pulse Ox 100 08/18/17 10:03 Vital Signs Reviewed: Yes Eye Exam: Normal Eyes: Positive: Conjunctiva Clear ENT Exam: Normal ENT: Positive: Normal ENT inspection, Hearing grossly normal, Pharynx normal. Negative: Nasal congestion, Tonsillar swelling, Tonsillar exudate, Trismus, Muffled voice Dental Exam: Normal Neck exam: Normal Neck: Positive: Supple, Nontender Respiratory Exam: Normal Respiratory: Positive: Chest non-tender, No respiratory distress, No accessory muscle use Cardiovascular Exam: Normal Cardiovascular: Positive: RRR, Pulses Normal, Brisk Capillary Refill Musculoskeletal Exam: Normal Musculoskeletal: Positive: ROM Intact, Strength Limited @ - left knee, Edema @ - left knee Neurological Exam: Normal Neurological: Positive: Alert, Muscle Tone Normal Psychological Exam: Normal Skin Exam: Normal <Lisa Spencer - Last Filed: 08/19/17 21:59> Vital Signs: Initial Vital Signs Temp 98 F 08/18/17 10:03 Pulse 80 08/18/17 10:03 Resp 16 08/18/17 10:03 BP 114/54 08/18/17 10:03 Pulse Ox 100 08/18/17 10:03 <Kirstie Dumont - Last Filed: 08/20/17 08:47> Diagnostics - Radiology No standard instances Xray Interpretation: Positive (See Comments) - joint effusion Radiology Interpretation Completed By: Radiologist <Lisa Spencer - Last Filed: 08/19/17 21:59> Knee Pain Course/Dx - Course Course Of Treatment: [place] wrap crutches, non weight bearing patient prefers to work and can work setting down, NSAIDS, follow with orthopedic MD - Differential Dx/Diagnosis Provider Diagnoses: Left knee joint effusion <Lisa Spencer - Last Filed: 08/19/17 21:59> Discharge <Lisa Spencer - Last Filed: 08/19/17 21:59> <Kirstie Dumont - Last Filed: 08/20/17 08:47> - Discharge Plan Condition: Stable Disposition: HOME Prescriptions: Ibuprofen TAB* [Motrin TAB* 600 MG] 600 mg PO Q6H PRN #40 tab PRN Reason: pain Patient Education Materials: Crutch Instructions (ED), Swollen Knee Joint (ED) Forms: *Work Release Referrals: Isidra Murphy MD [Medical Doctor] - 5 Days Attestation Statement User Type: Provider - I was available for consult. This patient was seen by the [facility]. The patient was not presented to, seen by, or examined by me. -Milad <Kirstie uDmont - Last Filed: 08/20/17 08:47>
--- NOTE | 2017-08-18 11:35 | RAD ---
INDICATION: Left knee pain and swelling. TECHNIQUE: 4 views of the left knee were obtained. FINDINGS: The bones are normal alignment. There is a moderate joint effusion present. No fracture is seen. There is a small lucent lesion in the proximal fibular metaphysis with a faint sclerotic margin likely a benign process. Joint spaces appear maintained. IMPRESSION: JOINT EFFUSION.
[2017-08-18 11:47] VITALS: BP 120/65
== END 2017-08-18 12:16 | disposition home or self-care (01) ==
LOC: UCEAST 09:39
DX: M25.462 Effusion, left knee (principal); Z88.3 Allergy status to other anti-infective agents; F12.90 Cannabis use, unspecified, uncomplicated; Z87.891 Personal history of nicotine dependence; E66.9 Obesity, unspecified
CPT/HCPCS: 99212; G0463

== ENCOUNTER 2017-09-07 09:59 | Emergency (ER) | payer MEDICARE, MEDICAID ==
--- OUTSIDE RECORDS SUMMARY | 2017-09-07 10:11 | XMS REPORT ---
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 ETOH Use Denies alcohol use Smoking Patient is a former smoker Exercise Type/Frequency Does not exercise Allergies, Adverse Reactions, Alerts Date Description Reaction Status Severity Comments 08/26/2017 NKDA active Medications Medication Date Status Form Strength Qnty SIG Indications Ordering Provider Ibuprofen 00/00/000 Active Tablets 600mg take 1 Unknown 0 tablet by mouth every 6 hours if needed for pain Vital Signs Date Vital Result Comment 08/26/2017 Height 62 inches 5'2" Weight 160.00 lb BP Systolic 129 mmHg BP Diastolic 80 mmHg Respiratory Rate 15 /min Pain Level 6 BMI (Body Mass Index) 29.3 kg/m2 Results Description No Information Procedures Date CPT Code Description Status 08/26/2017 93837 Inject/Drain Joint/Bursa Major Completed Plan of Care Future Appointment(s):09/23/2017 1:00 pm - Rj Fuller MD at [facility]08/26/2017 - Rj Fuller, [id number] Pain in right kneeFollow up:Follow up: 1 months as needed
--- NOTE | 2017-09-07 11:25 | UC ---
Respiratory Complaint HPI - HPI Summary HPI Summary: 4 DAYS OF COUGH, CONGESTION, N/V, SUBJECTIVE FEVER, MYALGIAS, FATIGUE, ST AND OVERALL MALAISE. NO FLU SHOT THIS SEASON. - History of Current Complaint Chief Complaint: UCRespiratory Stated Complaint: COUGH VOMITING Time Seen by Provider: 09/07/17 11:17 Hx Obtained From: Patient Hx Last Menstrual Period: 08/31/17 Onset/Duration: Gradual Onset, Lasting Days, Still Present Timing: Constant Severity Initially: Moderate Severity Currently: Moderate Pain Intensity: 7 Pain Scale Used: 0-10 Numeric Character: Cough: Nonproductive Aggravating Factors: Nothing Alleviating Factors: Nothing Associated Signs And Symptoms: Positive: Fever, URI, Nasal Congestion, Hoarseness - Allergies/Home Medications Allergies/Adverse Reactions: Allergies Allergy/AdvReac Type Severity Reaction Status Date / Time Amoxicillin [From Augmentin] AdvReac Severe Vomiting Verified 09/07/17 10:09 Clavulanic Acid AdvReac Severe Vomiting Verified 08/18/17 10:01 [From Augmentin] Erythromycin AdvReac Severe STOMACH Verified 08/18/17 10:01 CRAMPS, DIARRHEA PMH/Surg Hx/FS Hx/Imm Hx - Additional Past Medical History Additional PMH: CEREBRAL PALSY Respiratory History: Asthma Psychological History: Depression - Surgical History Surgical History: Yes Surgery Procedure, Year, and Place: 5x colon biopsies in 2013. at age 3 - ear tubes placed (removed later on), UTERINE POLYP - Family History Known Family History: Positive: Hypertension, Diabetes Negative: Seizure Disorder - Social History Alcohol Use: None Alcohol Amount: hx of etoh abuse Substance Use Type: None Substance Use Comment - Amount & Last Used: former marijuana Smoking Status (MU): Former Smoker Type: Cigarettes Amount Used/How Often: 1/2 PPD FOR ABOUT 10 YEARS Length of Time of Smoking/Using Tobacco: 7 years Have You Smoked in the Last Year: No When Did the Patient Quit Smoking/Using Tobacco: 2009 - Immunization History Most Recent Influenza Vaccination: 2016 Review of Systems Constitutional: Fever, Fatigue ENT: Sore Throat, Ear Ache, Nasal Discharge Respiratory: Cough Cardiovascular: Negative Gastrointestinal: Vomiting, Nausea Genitourinary: Negative Musculoskeletal: Myalgia All Other Systems Reviewed And Are Negative: Yes Physical Exam Triage Information Reviewed: Yes Appearance: No Pain Distress, Well-Nourished, Ill-Appearing - MOD Vital Signs: Initial Vital Signs Temp 98 F 09/07/17 10:10 Pulse 111 09/07/17 10:10 Resp 20 09/07/17 10:10 Pulse Ox 100 09/07/17 10:10 Eyes: Positive: Conjunctiva Clear ENT: Positive: Hearing grossly normal, Pharynx normal, TMs normal Neck: Positive: Supple, Nontender, No Lymphadenopathy Respiratory Exam: Normal Cardiovascular: Positive: Tachycardia Abdomen Description: Positive: Soft Musculoskeletal: Positive: No Edema Neurological: Positive: Alert Psychological: Positive: Age Appropriate Behavior Skin: Negative: rashes UC Diagnostic Evaluation - Laboratory O2 Sat by Pulse Oximetry: 100 Diagnostic Studies Comment: FLU SWAB NEGATIVE Respiratory Course/Dx - Differential Dx/Diagnosis Provider Diagnoses: ACUTE VIRAL SYNDROME Discharge - Discharge Plan Condition: Stable Disposition: HOME Prescriptions: Albuterol 2.5MG/3ML (0.083%)* [Ventolin 2.5 MG/3 ML NEB.BARBARA*] 2.5 mg INH Q4H PRN #1 box PRN Reason: Wheezing Azithromycin 500 mg PO DAILY #5 tab Patient Education Materials: Viral Syndrome (ED) Forms: *Work Release Referrals: Vamshi Camarena MD [Primary Care Provider] - If Needed Additional Instructions: FLU TEST NEGATIVE YOUR SYMPTOMS ARE LIKELY VIRALLY MEDIATED AND SHOULD RESOLVE ON THEIR OWN WITH TIME. REST, HYDRATE, OTC MEDS NEEDED. IF YOU ARE NOT IMPROVING OVER THE NEXT SEVERAL DAYS GO AHEAD AND FILL RX FOR ANTIBIOTIC. FOLLOW-UP WITH YOUR PCP IF NEEDED.
[2017-09-07 12:19] VITALS: BP 117/68
== END 2017-09-07 12:15 | disposition home or self-care (01) ==
LOC: UCEAST 09:59
DX: B34.9 Viral infection, unspecified (principal); Z87.891 Personal history of nicotine dependence; G80.9 Cerebral palsy, unspecified; F10.21 Alcohol dependence, in remission
CPT/HCPCS: 87502; 99212; G0463

== ENCOUNTER 2017-12-01 11:51 | Emergency (ER) | payer MEDICARE, MEDICAID ==
[2017-12-01 12:01] VITALS: BP 122/65
--- NOTE | 2017-12-01 12:18 | UC ---
Respiratory Complaint HPI - HPI Summary HPI Summary: 37 yo female with cough and wheezing x 3 days hx of asthma sinus symptoms no f/c no cp or sob has taken amox in past without problems - History of Current Complaint Chief Complaint: UCRespiratory Stated Complaint: CONGESTED Time Seen by Provider: 12/01/17 12:07 Hx Obtained From: Patient Hx Last Menstrual Period: 08/31/17 Onset/Duration: Gradual Onset, Lasting Days Timing: Constant Severity Initially: Mild Severity Currently: Moderate Pain Intensity: 0 Character: Cough: Productive, Sputum Description: - thick and green Aggravating Factors: Nothing Alleviating Factors: Nothing Associated Signs And Symptoms: Positive: Wheezing, Nasal Congestion, Sinus Discomfort Related History: Similar Episode/Dx as: - b ronchitis - Allergies/Home Medications Allergies/Adverse Reactions: Allergies Allergy/AdvReac Type Severity Reaction Status Date / Time amoxicillin [From Augmentin] Allergy Vomiting Verified 12/01/17 12:01 clavulanic acid Allergy Vomiting Verified 12/01/17 12:01 [From Augmentin] erythromycin base Allergy See Comment Verified 12/01/17 12:01 PMH/Surg Hx/FS Hx/Imm Hx Previously Healthy: Yes Respiratory History: Asthma, Bronchitis, Pneumonia - Surgical History Surgical History: Yes Surgery Procedure, Year, and Place: 5x colon biopsies in 2013. at age 3 - ear tubes placed (removed later on), UTERINE POLYP - Family History Known Family History: Positive: Hypertension, Diabetes Negative: Seizure Disorder - Social History Alcohol Use: None Alcohol Amount: hx of etoh abuse Substance Use Type: None Substance Use Comment - Amount & Last Used: former marijuana Smoking Status (MU): Former Smoker Type: Cigarettes Amount Used/How Often: 1/2 PPD FOR ABOUT 10 YEARS Length of Time of Smoking/Using Tobacco: 7 years Have You Smoked in the Last Year: No When Did the Patient Quit Smoking/Using Tobacco: 2009 - Immunization History Most Recent Influenza Vaccination: 2016 Review of Systems Constitutional: Negative Skin: Negative Eyes: Negative ENT: Nasal Discharge, Sinus Congestion, Sinus Pain/Tenderness Respiratory: Cough Cardiovascular: Negative Gastrointestinal: Negative Genitourinary: Negative Motor: Negative Neurovascular: Negative Musculoskeletal: Negative Neurological: Negative Psychological: Negative Is Patient Immunocompromised?: No All Other Systems Reviewed And Are Negative: Yes Physical Exam Triage Information Reviewed: Yes Appearance: Well-Appearing, No Pain Distress, Well-Nourished Vital Signs: Initial Vital Signs Temp 97.3 F 12/01/17 11:58 Pulse 92 12/01/17 11:58 Resp 18 12/01/17 11:58 BP 122/65 12/01/17 11:58 Pulse Ox 100 12/01/17 11:58 Vital Signs Reviewed: Yes Eyes: Positive: Conjunctiva Clear ENT: Positive: Uvula midline. Negative: Nasal congestion, Nasal drainage, Tonsillar swelling, Tonsillar exudate, Trismus, Muffled voice, Hoarse voice, Sinus tenderness Neck: Positive: Supple, Nontender, No Lymphadenopathy Respiratory: Positive: Lungs clear, Normal breath sounds, No respiratory distress, Wheezing - with forced expiration only Cardiovascular: Positive: RRR, No Murmur Musculoskeletal: Positive: ROM Intact, No Edema Neurological: Positive: Alert, Muscle Tone Normal Psychological Exam: Normal Skin Exam: Normal UC Diagnostic Evaluation - Laboratory O2 Sat by Pulse Oximetry: 100 - normal/not hypoxic Respiratory Course/Dx - Differential Dx/Diagnosis Provider Diagnoses: acute bronchitis Discharge - Sign-Out/Discharge Documenting (check all that apply): Discharge - Discharge Plan Condition: Stable Disposition: HOME Prescriptions: Albuterol 2.5MG/3ML (0.083%)* [Ventolin 2.5 MG/3 ML NEB.BARBARA*] 2.5 mg INH QID PRN #1 neb.barbara PRN Reason: Wheezing Amoxicillin PO (*) [Amoxicillin 875 MG (*)] 875 mg PO BID #14 tab predniSONE [Deltasone] 40 mg PO DAILY #10 tab Patient Education Materials: Acute Bronchitis (ED) Forms: *Work Release Referrals: Vamshi Camarena MD [Primary Care Provider] - If Needed Additional Instructions: recheck in 4 days if not better - Billing Disposition and Condition Condition: STABLE Disposition: HOME
== END 2017-12-01 12:17 | disposition home or self-care (01) ==
LOC: UCEAST 11:51
DX: J20.9 Acute bronchitis, unspecified (principal); J45.909 Unspecified asthma, uncomplicated; Z88.1 Allergy status to other antibiotic agents; Z88.0 Allergy status to penicillin; Z87.891 Personal history of nicotine dependence
CPT/HCPCS: 99212; G0463

== ENCOUNTER 2018-09-29 19:20 | Emergency (ER) | payer MEDICARE, MEDICAID ==
[2018-09-29 19:31] VITALS: BP 127/80
--- NOTE | 2018-09-29 21:16 | UC ---
Respiratory Complaint HPI - HPI Summary HPI Summary: 38-year-old woman. 38-year-old woman comes in with a chief complaint of cough chest congestion and wheezing for 5 days. She does have a history of asthma. She been having sputum. She is having body aches. Is complains of intermittent left leg numbness that occurs when she first wakes up and it goes away within minutes when she gets up moving. She has no weakness or numbness now. She has had intermittent back pain. His been worse over the last 2-3 weeks as she's been working more. She's had this on and off for years. - History of Current Complaint Chief Complaint: UCRespiratory Stated Complaint: COUGH, AND CHEST CONGESTION Time Seen by Provider: 09/29/18 19:38 Hx Last Menstrual Period: 2 WEEKS AGO (IRREGULAR) Pain Intensity: 6 - Allergies/Home Medications Allergies/Adverse Reactions: Allergies Allergy/AdvReac Type Severity Reaction Status Date / Time amoxicillin [From Augmentin] Allergy Vomiting Verified 09/29/18 19:31 clavulanic acid Allergy Vomiting Verified 09/29/18 19:31 [From Augmentin] erythromycin base Allergy See Comment Verified 09/29/18 19:31 Home Medications: Home Medications Albuterol HFA INHALER* [Ventolin HFA Inhaler*] 1 puff INH PRN 09/29/18 [History] Sinus Med* PRN 09/29/18 [History] PMH/Surg Hx/FS Hx/Imm Hx Previously Healthy: Yes Respiratory History: Asthma - Surgical History Surgical History: Yes Surgery Procedure, Year, and Place: 5x colon biopsies in 2013. at age 3 - ear tubes placed (removed later on), UTERINE POLYP - Family History Known Family History: Positive: Hypertension, Diabetes Negative: Seizure Disorder - Social History Alcohol Use: None Alcohol Amount: hx of etoh abuse Substance Use Type: None Substance Use Comment - Amount & Last Used: former marijuana Smoking Status (MU): Former Smoker Type: Cigarettes Amount Used/How Often: 1/2 PPD FOR ABOUT 10 YEARS Length of Time of Smoking/Using Tobacco: 7 years Have You Smoked in the Last Year: No When Did the Patient Quit Smoking/Using Tobacco: 2009 - Immunization History Most Recent Influenza Vaccination: 2016 Review of Systems All Other Systems Reviewed And Are Negative: Yes Constitutional: Positive: Negative Skin: Positive: Negative Eyes: Positive: Negative ENT: Positive: Sore Throat, Nasal Discharge, Sinus Congestion Respiratory: Positive: Shortness Of Breath, Cough, Other - WHEEZING Cardiovascular: Positive: Negative Gastrointestinal: Positive: Negative Motor: Positive: Negative Neurovascular: Positive: Decreased Sensation - SEE HPI Musculoskeletal: Positive: Other: - SEE HPI Neurological: Positive: Negative Psychological: Positive: Negative Is Patient Immunocompromised?: No Physical Exam Triage Information Reviewed: Yes Appearance: No Pain Distress, Well-Nourished, Ill-Appearing - MILD Vital Signs: Initial Vital Signs Temp 97.5 F 09/29/18 19:25 Pulse 94 09/29/18 19:25 Resp 16 09/29/18 19:25 BP 127/80 09/29/18 19:25 Pulse Ox 100 09/29/18 19:25 Vital Signs Reviewed: Yes Eye Exam: Normal Eyes: Positive: Conjunctiva Clear ENT: Positive: Pharyngeal erythema, Nasal congestion, Nasal drainage Neck exam: Normal Neck: Positive: Supple Respiratory: Positive: No respiratory distress, Wheezing Cardiovascular: Positive: RRR Musculoskeletal: Positive: Strength Intact, ROM Intact, Other: - LOW BACK MILD TENDERNESS TO PALPATION Neurological: Positive: Alert, Muscle Tone Normal, Other: - Leg exam shows strength 5 out of 5 in lower legs IN plantar flexion and dorsiflexion. Normal patellar reflexes. No sensation deficit in the legs. Psychological Exam: Normal Psychological: Positive: Age Appropriate Behavior UC Diagnostic Evaluation - Laboratory O2 Sat by Pulse Oximetry: 100 Respiratory Course/Dx - Course Course Of Treatment: Patient has no neurologic deficit here in clinic. Discussed the CT report with the patient. Patient will follow-up primary care doctor for the transient left leg paresthesia. Also splenomegaly and retroperitoneal lymphadenopathy was noticed on CT. Radiology recommended a CT with contrast of the abdomen and pelvis. Here in clinic we do not have IV contrast at this time. is seen oncology Dr. Dumont in the past she believes for her spleen being enlarged. I discussed all this with the patient and she'll be following up Dr. Dumont regarding these findings. Patient will follow-up with her primary care doctor for the leg procedure and also for the bronchitis and asthma. - Differential Dx/Diagnosis Provider Diagnosis: Bronchitis, Asthma, Low back pain, Paresthesia of left leg, Splenomegaly, Retroperitoneal lymphadenopathy Discharge - Sign-Out/Discharge Documenting (check all that apply): Patient Departure All imaging exams completed and their final reports reviewed: Yes - Discharge Plan Condition: Stable Disposition: HOME Prescriptions: Albuterol 2.5MG/3ML (0.083%)* [Ventolin 2.5 MG/3 ML NEB.BARBARA*] 2.5 mg INH Q6H PRN #30 neb.[email or web address] PRN Reason: Wheezing Albuterol HFA INHALER* [Ventolin HFA Inhaler*] 2 puff INH Q4H PRN #1 mdi PRN Reason: Wheezing DOXYcycline CAP(*) [DOXYcycline 100MG CAP(*)] 100 mg PO BID #20 cap predniSONE TAB* [Deltasone 20 MG TAB*] 40 mg PO DAILY #8 tab Patient Education Materials: Lymphadenopathy (ED), Acute Bronchitis (ED), Bronchospasm (ED) Forms: *Work Release Referrals: Vamshi Camarena MD [Primary Care Provider] - Additional Instructions: FOLLOW UP WITH YOUR PRIMARY CARE DOCTOR FOR YOUR RESPIRATORY INFECTION. FOLLOW UP WITH DR DUMONT FOR YOUR ENLARGED SPLEEN AND ENLARGED LYMPH NODES FOUND ON CT. YOU NEED TO HAVE A CT SCAN OF YOUR ABDOMEN AND PELVIS WITH CONTRAST TO FURTHER EVALUATE THESE. GET RECHECKED SOONER WITH ANY WORSENING OF YOUR CONDITION OR QUESTIONS OR CONCERNS. - Billing Disposition and Condition Condition: STABLE Disposition: Home
[2018-09-29] MEDS ORDERED: DOXYcycline CAP(*) 100 MG PO ONE (21:19)
[2018-09-29] MEDS ORDERED: Albuterol HFA INHALER* 8 gm MDI INH ONE (21:19)
[2018-09-29] MEDS ORDERED: predniSONE TAB* 20 MG PO ONE (21:19)
== END 2018-09-29 21:41 | disposition home or self-care (01) ==
LOC: UCEAST 19:20
DX: J45.909 Unspecified asthma, uncomplicated (principal); M54.5 Low back pain; R20.2 Paresthesia of skin; R16.1 Splenomegaly, not elsewhere classified; R59.1 Generalized enlarged lymph nodes; Z87.891 Personal history of nicotine dependence; Z88.1 Allergy status to other antibiotic agents; Z88.0 Allergy status to penicillin
CPT/HCPCS: 72131; 99213; A9270-GY; G0463; J7512

== ENCOUNTER 2018-11-17 18:19 | Emergency (ER) | payer MEDICARE, MEDICAID ==
[2018-11-17 18:59] VITALS: BP 133/76
--- NOTE | 2018-11-17 19:54 | UC ---
Hip/Pelvis Pain - HPI Summary HPI Summary: 38 yo WM p/w B/L hip pain worse with walking, just started after having had travaginal sono, sitting in frogleg position alleviates the pain. 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 and is on her feet all day but denies any recent injuries - History Of Current Complaint Chief Complaint: UCLowerExtremity Stated Complaint: HIP PAIN Time Seen by Provider: 11/17/18 19:01 Hx Obtained From: Patient Hx Last Menstrual Period: 10/28/18 Severity Initially: Moderate Severity Currently: Moderate Pain Intensity: 7 - Allergies/Home Medications Allergies/Adverse Reactions: Allergies Allergy/AdvReac Type Severity Reaction Status Date / Time Milk Containing Products Allergy Intermediate Constipatio Verified 11/17/18 19: 00 n amoxicillin [From Augmentin] Allergy Vomiting Verified 11/17/18 19:00 clavulanic acid Allergy Vomiting Verified 11/17/18 19:00 [From Augmentin] erythromycin base Allergy See Comment Verified 11/17/18 19:00 PMH/Surg Hx/FS Hx/Imm Hx Previously Healthy: Yes - Surgical History Surgical History: Yes Surgery Procedure, Year, and Place: 5x cone biopsies in 2013 (cervix). at age 3 - ear tubes placed (removed later on), UTERINE POLYP - Family History Known Family History: Positive: Hypertension, Diabetes Negative: Seizure Disorder - Social History Alcohol Use: None Alcohol Amount: hx of etoh abuse Substance Use Type: None Substance Use Comment - Amount & Last Used: former marijuana Smoking Status (MU): Former Smoker Type: Cigarettes Amount Used/How Often: 1/2 PPD FOR ABOUT 10 YEARS Length of Time of Smoking/Using Tobacco: 7 years Have You Smoked in the Last Year: No When Did the Patient Quit Smoking/Using Tobacco: 2009 - Immunization History Most Recent Influenza Vaccination: 2016 Review of Systems All Other Systems Reviewed And Are Negative: Yes - Comments Additional Review of Systems Comments: Constitutional: Negative Eyes: Negative ENT: Negative Cardiovascular: Negative Respiratory: Negative Gastrointestinal: Negative Genitourinary: Negative Musculoskeletal: B/L hip pain Skin: Negative Neurological: Negative Psychological: Normal All Other Systems Reviewed And Are Negative: Yes Physical Exam - Summary Physical Exam Summary: Vital Signs Reviewed: Yes Appearance: Positive: No Pain Distress Skin: Positive: Warm Head/Face: Positive: Normal Head/Face Inspection Eyes: Positive: Normal ENT: Positive: Normal ENT inspection Neck: Positive: Supple Respiratory/Lung Sounds: Positive: Clear to Auscultation. Negative: Rales, Rhonchi, Wheezes Cardiovascular: Positive: Normal, RRR, S1, S2 Abdomen Description: Positive: Nontender Musculoskeletal: Positive:mild TTP over B/L trochanters, imporved with frog leg position Neurological: Positive: Normal, CN Intact II-III, NO focal deficits, gait is WNL Psychiatric: Positive: Normal, Affect/Mood Appropriate Triage Information Reviewed: Yes Vital Signs: Initial Vital Signs Temp 36.6 C 11/17/18 18:53 Pulse 110 11/17/18 18:53 Resp 16 11/17/18 18:53 BP 133/76 11/17/18 18:53 Pulse Ox 98 11/17/18 18:53 Hip Injury Course/Dx - Differential Dx/Diagnosis Provider Diagnosis: Hip pain, bilateral Discharge - Sign-Out/Discharge Documenting (check all that apply): Patient Departure All imaging exams completed and their final reports reviewed: Yes - Discharge Plan Condition: Stable Disposition: HOME Patient Education Materials: Hip Sprain (ED) Referrals: Vamshi Camarena MD [Primary Care Provider] - - Billing Disposition and Condition Condition: STABLE Disposition: Home
== END 2018-11-17 20:20 | disposition home or self-care (01) ==
LOC: UCEAST 18:19
DX: M25.551 Pain in right hip (principal); M25.552 Pain in left hip; Z87.891 Personal history of nicotine dependence; Z91.011 Allergy to milk products; Z88.0 Allergy status to penicillin; Z88.1 Allergy status to other antibiotic agents
CPT/HCPCS: 73523; 99211; G0463

== ENCOUNTER 2019-01-03 18:31 | Emergency (ER) | payer MEDICARE, MEDICAID ==
[2019-01-03 18:42] VITALS: BP 138/84
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
[2019-01-03] MEDS ORDERED: Tetan/Diph/Pertus SYR(Tdap)* 0.5 ML SYR(BOOSTRIX) use SYR IM ONE (19:21)
== END 2019-01-03 20:05 | disposition home or self-care (01) ==
LOC: UCEAST 18:31
DX: L03.113 Cellulitis of right upper limb (principal); B36.9 Superficial mycosis, unspecified; Z23 Encounter for immunization; Z88.0 Allergy status to penicillin; Z88.1 Allergy status to other antibiotic agents; Z91.011 Allergy to milk products; Z87.891 Personal history of nicotine dependence
CPT/HCPCS: 90471; 90715; 99212; G0463

== ENCOUNTER 2019-02-03 09:32 | Emergency (ER) | payer MEDICARE, MEDICAID ==
[2019-02-03 09:50] VITALS: BP 137/83
--- NOTE | 2019-02-03 09:52 | UC ---
Knee Pain HPI - HPI Summary HPI Summary: 39 yo female presents with area of redness and pain to her left knee. She tells me that yesterday she noticed a small red area to the anterior aspect of her left knee. Today the area has enlarged, become more painful, and has a central yellow blister-like spot. Pain is better with ice and rest. Pain is worse with movement and weight bearing. She denies specific injury or getting bitten by anything. No fever or chills - History of Current Complaint Chief Complaint: UCSkin Stated Complaint: LT KNEE INJURY Time Seen by Provider: 02/03/19 09:52 Hx Obtained From: Patient Hx Last Menstrual Period: 12/28/18 Onset/Duration: Sudden Onset Severity Initially: Moderate Severity Currently: Severe Pain Intensity: 10 Pain Scale Used: 0-10 Numeric - Allergies/Home Medications Allergies/Adverse Reactions: Allergies Allergy/AdvReac Type Severity Reaction Status Date / Time Milk Containing Products Allergy Intermediate Constipatio Verified 02/03/19 09: 50 n amoxicillin [From Augmentin] Allergy Vomiting Verified 02/03/19 09:50 clavulanic acid Allergy Vomiting Verified 02/03/19 09:50 [From Augmentin] erythromycin base Allergy See Comment Verified 02/03/19 09:50 Penicillins Allergy Unknown Verified 02/03/19 09:50 Reaction Details Home Medications: Home Medications Cream For Itching 1 applic TOPICAL BID 02/03/19 [History Confirmed 02/03/19] PMH/Surg Hx/FS Hx/Imm Hx Respiratory History: Asthma - Surgical History Surgical History: Yes Surgery Procedure, Year, and Place: 5x cone biopsies in 2013 (cervix). at age 3 - ear tubes placed (removed later on), UTERINE POLYP - Family History Known Family History: Positive: Hypertension, Diabetes Negative: Seizure Disorder - Social History Occupation: Employed Full-time Lives: With Family Alcohol Use: None Alcohol Amount: recovering alcoholic Substance Use Type: None Substance Use Comment - Amount & Last Used: hx of Smoking Status (MU): Former Smoker Type: Cigarettes Amount Used/How Often: 1/2 PPD FOR ABOUT 10 YEARS Length of Time of Smoking/Using Tobacco: 7 years Have You Smoked in the Last Year: No When Did the Patient Quit Smoking/Using Tobacco: 2009 - Immunization History Most Recent Influenza Vaccination: 2016 Review of Systems All Other Systems Reviewed And Are Negative: Yes Constitutional: Positive: Negative Skin: Positive: Rash Respiratory: Positive: Negative Cardiovascular: Positive: Negative Neurovascular: Positive: Negative Musculoskeletal: Positive: Negative Neurological: Positive: Negative Psychological: Positive: Negative Physical Exam - Summary Physical Exam Summary: GENERAL: NAD. WDWN. No pain distress. SKIN: LEFT KNEE: Anterior left knee at the level of the tibial tuberosity there is a 4.0cm diameter area of mild erythema, warmth, and TTP with central 5mm yellow pustule. No streaking, bleeding, or drainage. CHEST: No accessory muscle use. Breathing comfortably and in no distress. CV: Pulses intact. Cap refill <2seconds MSK: FROM left knee NEURO: Alert. PSYCH: Age appropriate behavior. Triage Information Reviewed: Yes Vital Signs: Initial Vital Signs Temp 98.2 F 02/03/19 09:44 Pulse 102 02/03/19 09:44 Resp 18 02/03/19 09:44 BP 137/83 02/03/19 09:44 Pulse Ox 100 02/03/19 09:44 Vital Signs Reviewed: Yes Knee Pain Course/Dx - Course Course Of Treatment: Mild yellow purulent matter was able to be expressed with manual pressure of the pustule and a culture was obtained. Will place pt on keflex for abscess vs cellulitis likely due to insect bite. - Differential Dx/Diagnosis Provider Diagnosis: Cellulitis Discharge - Sign-Out/Discharge Documenting (check all that apply): Patient Departure All imaging exams completed and their final reports reviewed: No Studies - Discharge Plan Condition: Stable Disposition: HOME Prescriptions: Cephalexin CAP* [Keflex CAP*] 500 mg PO BID #10 cap Patient Education Materials: Cellulitis (DC) Forms: *Work Release Referrals: Vamshi Camarena MD [Primary Care Provider] - Additional Instructions: If you develop a fever, shortness of breath, chest pain, new or worsening symptoms - please call your PCP or go to the ED immediately. Your blood pressure was slightly elevated at todays visit. Please see your primary provider within 4 weeks for recheck and re-evaluation. - Billing Disposition and Condition Condition: STABLE Disposition: Home
== END 2019-02-03 10:07 | disposition home or self-care (01) ==
LOC: UCEAST 09:32
DX: L03.116 Cellulitis of left lower limb (principal); Z88.0 Allergy status to penicillin; Z88.1 Allergy status to other antibiotic agents; Z91.011 Allergy to milk products; Z87.891 Personal history of nicotine dependence
CPT/HCPCS: 87070; 87077; 87186; 87205; 87640; 87641; 99212; G0463

== ENCOUNTER 2019-03-09 20:21 | Emergency (ER) | payer MEDICARE, MEDICAID ==
--- OUTSIDE RECORDS SUMMARY | 2019-03-09 20:26 | XMS REPORT | Continuity of Care Document ---
:1980 External Reference #:[id number] Author Name Susanne Bone Care Team Providers Name Role Phone Vamshi Camarena MD Care Team Information Behavioral Health Clinician Unavailable Vamshi Camarena MD Primary Care Physician Unavailable Payers Date Identification Numbers Payment Provider Subscriber Effective: Policy Number: [id number] Medicare Audelia Negrete 2010 PayID: [id number] [address] [place] [address] Expires: 2017 Policy Number: [id number] Medicare Audelia Negrete PayID: [id number] [address] [place] [address] Effective: 2017 Policy Number: [id number] Medicaid Audelia Negrete Group Name: 1 1 [address] PayID: [id number] [place] [address] Onset: 2012 Policy Number: [facility] Insurance Fund Audelia Conde [id number] Huey [place]ID: [id number] [address] [address] [place] [address] Problems Active Problems Provider Date Dysfunction of eustachian tube Joe Weems M.D. Onset: 10/08/2014 Chronic otitis media Joe Weems M.D. Onset: 10/08/2014 Otorrhea Joe Weems M.D. Onset: 10/08/2014 Chronic mastoiditis Joe Weems M.D. Onset: 10/15/2014 Chronic rhinitis Joe Weems M.D. Onset: 10/29/2014 Chronic maxillary sinusitis Joe Weems M.D. Onset: 10/29/2014 Chronic ethmoidal sinusitis Joe Weems M.D. Onset: 10/29/2014 Chronic serous otitis media Joe Weems M.D. Onset: 12/16/2015 Other specified disorders of Eustachian Joe Weems M.D. Onset: 11/03 tube, right ear Temporomandibular joint disorder Joe Weems M.D. Onset: 11/04/2015 Otalgia Joe Weems M.D. Onset: 11/04/2015 Impetigo Joe Weems M.D. 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 Tobacco Use Start: Unknown End: Former Cigarette 5 years Smoker 1-5 Cigarettes Daily Tobacco Use Start: Unknown Secondhand smoke As an adult Smoking Status Reviewed: 02/07/19 Secondhand smoke As an adult Tobacco Use Start: Unknown Never Smoked Cigars Tobacco Use Start: Unknown Never Smoked A Pipe Smokeless Tobacco Never Used Smokeless Tobacco ETOH Use Denies alcohol use Tobacco Use Start: Unknown End: Patient is a former Unknown smoker Recreational Drug Use Denies Drug Use Exercise Type/Frequency Exercises regularly Exercise Type/Frequency Walks daily Depends on weather Allergies, Adverse Reactions, Alerts Active Allergies Reaction Severity Comments Date Augmentin 10/30/2014 Erythromycin Nausea, Vomiting 02/07/2019 Inactive Allergies NKDA 10/23/2013 NKDA 08/26/2017 Medications Active Medications SIG Qnty Indications Ordering Provider Date Ibuprofen take 1 tablet by Unknown 600mg Tablets mouth every 6 hours if needed for pain Cephalexin take 1 capsule by Unknown 500mg mouth twice a day Capsules Halobetasol apply to Hand And Unknown Propionate Arm twice a day 0.05% Ointment Ventolin HFA inhale 2 puffs by Unknown mouth every 4 108(90Base) mcg/Act hours if needed Aerosol for wheezing History Medications Cipro HC 3 drops left ear 10ml H69.81 [facility] 12/16/2015 - 0.2-1% twice a day Priti Weems 11/30/2015 Suspension Ceftin 1 tabs by mouth 20tabs H69.81 [facility] 12/16/2015 - 250mg Tablets twice a day Priti Weems 11/30/2015 Keflex 500 mg 3 times a 30caps 684 [facility] 01/07/2015 - 500mg Capsules day Priti Weems 12/16/2015 Bactroban applied to the 1units 684 [facility] 01/07/2015 - 2% Ointment nasal skin left Priti Weems 02/06/2019 side 3 times a day Ofloxacin (Otic) 3 drops affected 1units [facility] 11/12/2014 - 0.3% ear twice a day Priti Weems 11/30/2015 Solution Amoxicillin/Clavulan 1 tablet twice a 40tabs 473.0 [facility] 10/29/2014 - ate Potassium day for 20 days Priti Weems 11/12/2014 500-125mg Tablets No Active Unknown 10/08/2014 - Medications 10/09/2014 Flonase 2 puffs both sides 3units 472.0 [facility] 12/11/2013 - 50mcg/Act once a day Priti Weems 10/08/2014 Suspension Hydrocodone/Acetamin 1-2 po qid prn 30tabs Myles Ayala 02/26/2012 - apryl Marcos 10/08/2014 5-325mg Tablets Zoloft 1 po qd Unknown - 100mg Tablets 10/08/2014 Ventolin HFA 2 puffs po qid prn 1units Unknown - 10/08/2014 108(90Base) mcg/Act Aerosol Cipro HC 4ggts r ear bid 1bottle Unknown - 0.2-1% for 10 days. 10/08/2014 Suspension Augmentin 1 po tid 10tabs Unknown - 500-125mg 10/08/2014 Tablets Ciprofloxacin 5 milliliters by Unknown - mouth twice a day 11/12/2014 250mg/5ML (5%) x 5 days Suspension Rec Medications Administered in Office Medication SIG Qnty Indications Ordering Provider Date Depomedrol 40MG Abdi Blackwell PA-C 08/26/2017 Injection Vital Signs Date Vital Result Comment 02/07/2019 1:13pm Height 62 inches 5'2" Weight 172.12 lb Heart Rate 82 /min BP Systolic Sitting 130 mmHg Lue reg cuff BP Diastolic Sitting 92 mmHg Lue reg cuff Respiratory Rate 20 /min O2 % BldC Oximetry 99 % On Ra BMI (Body Mass Index) 31.5 kg/m2 Neck Circumference in inches 14.5 08/26/2017 1:49pm Height 62 inches 5'2" Weight 160.00 lb BP Systolic 129 mmHg BP Diastolic 80 mmHg Respiratory Rate 15 /min Pain Level 6 BMI (Body Mass Index) 29.3 kg/m2 12/30/2015 2:06pm Heart Rate 76 /min BP Systolic Sitting 128 mmHg BP Diastolic Sitting 88 mmHg 12/16/2015 1:23pm Heart Rate 70 /min BP Systolic Sitting 118 mmHg BP Diastolic Sitting 62 mmHg 01/14/2015 2:53pm Heart Rate 70 /min BP Systolic Sitting 116 mmHg BP Diastolic Sitting 76 mmHg 01/07/2015 1:42pm Heart Rate 60 /min BP Systolic Sitting 118 mmHg BP Diastolic Sitting 86 mmHg 11/12/2014 2:03pm Heart Rate 76 /min BP Systolic Sitting 122 mmHg BP Diastolic Sitting 78 mmHg 10/29/2014 1:44pm Heart Rate 78 /min BP Systolic Sitting 128 mmHg BP Diastolic Sitting 80 mmHg 10/15/2014 2:51pm Heart Rate 80 /min BP Systolic Sitting 122 mmHg BP Diastolic Sitting 86 mmHg 10/08/2014 2:51pm Heart Rate 76 /min BP Systolic Sitting 124 mmHg BP Diastolic Sitting 80 mmHg 02/19/2014 1:29pm Heart Rate 72 /min BP Systolic Sitting 120 mmHg BP Diastolic Sitting 74 mmHg 01/15/2014 2:57pm Heart Rate 70 /min BP Systolic Sitting 120 mmHg BP Diastolic Sitting 74 mmHg 10/23/2013 2:16pm Height 62 inches 5'2" Weight 160.00 lb Heart Rate 80 /min BMI (Body Mass Index) 29.3 kg/m2 Results Test Date Facility Test Result H/L Range Note Laboratory test 01/04/2019 [facility] Erythrocyte Sed 10 mm/Hr N 0-[address] [place] [address] [phone] Angiotensin Converting Enzyme 62 U/L 16 - 85 1 Anti Nuclear Antibody 1.1 U Abnormal 2 Laboratory test 01/04/2019 [facility] Rheumatoid < 10 IU/mL N <[address] [place] [address] [phone] Iron & Iron 01/04/2019 [facility] Iron 19 g/dL Low 50-[address] [place] [address] [phone] Unsaturated Iron Binding < 471 g/dL Total Iron Binding Capacity 486 g/dL High 250-450 Transferrin 347 mg/dL N 203-362 % Iron Saturation 4 % Low 15-55 CBC Auto Diff 01/04/2019 [facility] White Blood 4.6 10^3/uL N 3.5-10.[address] [place] [address] [phone] Red Blood Count 4.91 10^6/uL High 3.70-4.87 Hemoglobin 9.4 g/dL Low 12.0-16.0 Hematocrit 31 % Low 35-47 Mean Corpuscular Volume 63 fL Low 80-97 3 Mean Corpuscular Hemoglobin 19 pg Low 27-31 Mean Corpuscular HGB Conc 31 g/dL N 31-36 Red Cell Distribution Width 16 % High 10.5-15 Platelet Count 181 10^3/uL N 150-450 Mean Platelet Volume 6.9 fL Low 7.4-10.4 Abs Neutrophils 3.4 10^3/uL N 1.5-7.7 Abs Lymphocytes 0.6 10^3/uL Low 1.0-4.8 Abs Monocytes 0.5 10^3/uL N 0-0.8 Abs Eosinophils 0.1 10^3/uL N 0-0.6 Abs Basophils 0.0 10^3/uL N 0-0.2 Abs Nucleated RBC 0.0 10^3/uL Granulocyte % 73.4 % Lymphocyte % 13.9 % Monocyte % 10.9 % Eosinophil % 1.6 % Basophil % 0.2 % Nucleated Red Blood Cells % 0.2 Laboratory test 01/04/2019 [facility] Ferritin 6.2 ng/mL Low 11-[address] [place] [address] [phone] Vitamin B12 202 pg/mL N 180-914 4 C Reactive Protein 5.18 mg/L N <8.01 Laboratory test 12/13/2018 [facility] Partial 29.2 N 26.0- 36.[address] [place] [address] PTT [phone] Inr/Protime 12/13/2018 [facility] Inr 1.16 High 0.77-1.[address] [place] [address] [phone] Platelet Count 12/13/2018 [facility] Platelet 200 10^3/uL N 150-[address] [place] [address] [phone] Mean Platelet Volume 6.6 fL Low 7.4-10.4 Laboratory test 12/13/2018 [facility] Tissue Culture & SEE RESULT 5, [address] [place] [address] [phone] Laboratory test 12/13/2018 [facility] Tissue Culture & SEE RESULT [address] [place] [address] [phone] Laboratory test 12/13/2018 [facility] Mycobacterial See Comment [address] [place] [address] [phone] Laboratory test 12/13/2018 [facility] Tissue Culture & SEE RESULT [address] [place] [address] [phone] Laboratory test 12/13/2018 [facility] Tissue Culture & SEE RESULT [address] [place] [address] [phone] Laboratory test 11/24/2018 [facility] Cytology Non-Cytogenetic Technologist SEE RESULT [address] [place] [address] [phone] Platelet Count 11/24/2018 [facility] Platelet Count 227 10^3/uL N 150- [address] [place] [address] [phone] Mean Platelet Volume 7.2 fL Low 7.4-10.4 Inr/Protime 11/24/2018 [facility] Inr 1.04 High 0.77-1.[address] [place] [address] [phone] Laboratory test 11/24/2018 [facility] Partial 22.2 Low 26.0- 36.[address] [place] [address] PTT [phone] Leukemia/Lympho 11/24/2018 [facility] Path (SEE NOTE) [address] [place] [address] 9-15 Marker [phone] Comp Metabolic 10/12/2018 [facility] Sodium 136 mmol/L N 135- [address] [place] [address] [phone] Potassium 4.0 mmol/L N 3.5-5.0 Chloride 103 mmol/L N 101-111 Co2 Carbon Dioxide 26 mmol/L N 22-32 Anion Gap 7 mmol/L N 2-11 Glucose 95 mg/dL N 70-100 Blood Urea Nitrogen 7 mg/dL N 6-24 Creatinine 0.67 mg/dL N 0.51-0.95 BUN/Creatinine Ratio 10.4 N 8-20 Calcium 8.7 mg/dL N 8.6-10.3 Total Protein 5.8 g/dL Low 6.4-8.9 Albumin 4.2 g/dL N 3.2-5.2 Globulin 1.6 g/dL Low 2-4 Albumin/Globulin Ratio 2.6 N 1-3 Total Bilirubin 0.70 mg/dL N 0.2-1.0 Alkaline Phosphatase 97 U/L N 34-104 Alt 13 U/L N 7-52 Ast 16 U/L N 13-39 Egfr Non- 98.0 >60 Egfr 118.6 >60 13 Laboratory test finding 10/12/2018 [facility] LDH [address] [place] [address] [phone] Iron & Iron Binding 10/12/2018 [facility] Iron 19 g/dL Low 50-[address] [place] [address] [phone] Unsaturated Iron Binding < 461 g/dL Total Iron Binding Capacity 476 g/dL High 250-450 Transferrin 340 mg/dL N 203-362 % Iron Saturation 4 % Low 15-55 Laboratory test 10/12/2018 [facility] Ferritin 4.9 ng/mL Low 11-[address] [place] [address] [phone] CBC Auto Diff 10/12/2018 [facility] White Blood 4.1 N 3.5- 10.[address] Count 10^3/[place] [address] [phone] Red Blood Count 5.15 10^6/uL N 4.00-5.40 Hemoglobin 9.6 g/dL Low 12.0-16.0 Hematocrit 32 % Low 35-47 Mean Corpuscular Volume 62 fL Low 80-97 Mean Corpuscular Hemoglobin 19 pg Low 27-31 Mean Corpuscular HGB Conc 30 g/dL Low 31-36 Red Cell Distribution Width 16 % High 10.5-15 Platelet Count 207 10^3/uL N 150-450 Mean Platelet Volume 6.9 fL Low 7.4-10.4 Abs Neutrophils 2.5 10^3/uL N 1.5-7.7 Abs Lymphocytes 0.9 10^3/uL Low 1.0-4.8 Abs Monocytes 0.6 10^3/uL N 0-0.8 Abs Eosinophils 0.1 10^3/uL N 0-0.6 Abs Basophils 0 10^3/uL N 0-0.2 Abs Nucleated RBC 0 10^3/uL Granulocyte % 60.3 % Lymphocyte % 21.1 % Monocyte % 15.6 % Eosinophil % 2.4 % Basophil % 0.6 % Nucleated Red Blood Cells % 0.1 Cell Morphology 10/12/2018 [facility] Anisocytosis [address] [place] [address] [phone] Laboratory test 10/12/2018 [facility] Pathologist Review (SEE NOTE) [address] [place] [address] [phone] Laboratory test 01/07/2015 [facility] Wound SEE RESULT [address] [place] [address] [phone] Xray 10/16/[address] [facility] [address] Head/Brain W/O <pending> [place] [address] [phone] 1 Test Performed by: [address] [address] 2 Interpretation: Weak Positive (1.1-2.9) REFERENCE VALUE <=1.0 (Negative) Test Performed by: [facility] [address] [place] [address] 3 Consistent with Previous Results Reported on 10/12/18 4 Normal Range 180 to 914 Indeterminate Range 145 to 180 Deficient Range <145 5 FNA OF LUNG LEFT UPPER 6 SEE RESULT BELOW Name: AUDELIA MOONEY : [address]: Kylie Lai MD Acct: [id number] Unit: [id number] AGE: 38 Location: SP Re12/13/18 SEX: F Status: REG REF SPEC: [id number] DEEPIKA: 12/13/18-[address] [facility] [address]: Kylie Lai MD REQ: [id number] RECD: 12/13/18 STATUS: RES [facility] DR: Vamshi Camarena MD _ SOURCE: TISSUE SPDESC: ORDERED: Tissue Cult/GS, Fungal - Other, AFB Cult Smear COMMENTS: FNA OF LUNG LEFT UPPER Procedure Result Reported Site Tissue Gram Stain Final 12/13/18- 1605 ML 1+ Neutrophils No Organisms Seen Preparation By Direct Smear Tissue Culture Final 12/17/18- 0849 ML No Growth Day 4 Fungal Cult - Other Sources Preliminary 12/19/18- 1427 ML No Growth Week 1 Acid Fast Stain - Direct Final 12/13/18- 1605 ML AFB Smear Result No Acid Fast Bacillus Present (Negative) Due to limited sensitivity of the smear, results should be used as an adjunct in evaluating the patient's status. This specimen has been sent to referral laboratory for mycobacterial culture. * ML - Main Lab . END OF REPORT DEPARTMENT OF PATHOLOGY, [address] [place] [address] Vance Rossi M.D. Director [facility] # [id number] 7 SEE RESULT BELOW Name: AUDELIA MOONEY : [address]: Kylie Lai MD Acct: [id number] Unit: [id number] AGE: 38 Location: SP Re12/13/18 SEX: F Status: REG REF SPEC: [id number] DEEPIKA: 12/13/18-[address]: Kylie Lai MD REQ: [id number] RECD: 12/13/18 STATUS: RES HR DR: Vamshi Camarena MD _ SOURCE: TISSUE SPDESC: ORDERED: Tissue Cult/GS, Fungal - Other, AFB Cult Smear COMMENTS: FNA OF LUNG LEFT UPPER Procedure Result Reported Site Tissue Gram Stain Final 12/13/18- 1605 ML 1+ Neutrophils No Organisms Seen Preparation By Direct Smear Tissue Culture Final 12/17/18- 0849 ML No Growth Day 4 Fungal Cult - Other Sources Preliminary 12/26/18- 1509 ML No Growth Week 2 Acid Fast Stain - Direct Final 12/13/18- 1605 ML AFB Smear Result No Acid Fast Bacillus Present (Negative) Due to limited sensitivity of the smear, results should be used as an adjunct in evaluating the patient's status. This specimen has been sent to referral laboratory for mycobacterial culture. * ML - Main Lab . END OF REPORT DEPARTMENT OF PATHOLOGY, [address] [place] [address] Vance Rossi M.D. Director [facility] # [id number] SOURCE: LUNG, fna left upper lung MYCOBACTERIAL CULTURE FINAL No growth after 42 days of incubation. Test Performed by: [address] [address] 9 SEE RESULT BELOW Name: AUDELIA MOONEY : [address]: Kylie Lai MD Acct: [id number] Unit: [id number] AGE: 38 Location: SP Re12/13/18 SEX: F Status: REG REF SPEC: [id number] DEEPIKA: 12/13/18-[address] [facility] [address]: Kylie Lai MD REQ: [id number] RECD: 12/13/18 STATUS: LORI [facility] DR: Vamshi Camarena MD _ [facility]: Tissue Cult/GS, Fungal - Other, AFB Cult Smear COMMENTS: FNA OF LUNG LEFT UPPER Procedure Result Reported Site Tissue Gram Stain Final 12/13/18- 1605 ML 1+ Neutrophils No Organisms Seen Preparation By Direct Smear Tissue Culture Final 12/17/18- 0849 ML No Growth Day 4 Fungal Cult - Other Sources Final 01/09/19- 1400 ML No Growth Week 4 Acid Fast Stain - Direct Final 12/13/18- 1605 ML AFB Smear Result No Acid Fast Bacillus Present (Negative) Due to limited sensitivity of the smear, results should be used as an adjunct in evaluating the patient's status. This specimen has been sent to referral laboratory for mycobacterial culture. * ML - Main Lab . END OF REPORT DEPARTMENT OF PATHOLOGY, [address] [place] [address] Vance Rossi M.D. Director [facility] # [id number] 10 SEE RESULT BELOW Name: PREETI NEGRETEAUDELIA : [address]: Kylie Lai MD Acct: [id number] Unit: [id number] AGE: 38 Location: Re12/13/18 SEX: F Status: REG REF SPEC: [id number] DEEPIKA: 12/13/18-[address] [facility] [address]: Kylie Lai MD REQ: [id number] RECD: 12/13/18 STATUS: RES [facility] DR: Vamshi Camarena MD _ SOURCE: TISSUE SPDESC: ORDERED: Tissue Cult/GS, Fungal - Other, AFB Cult Smear COMMENTS: FNA OF LUNG LEFT UPPER Procedure Result Reported Site Tissue Gram Stain Final 12/13/18- 1605 ML 1+ Neutrophils No Organisms Seen Preparation By Direct Smear Tissue Culture Final 12/17/18- 0849 ML No Growth Day 4 Fungal Cult - Other Sources Preliminary 01/02/19- 1351 ML No Growth Week 3 Acid Fast Stain - Direct Final 12/13/18- 1605 ML AFB Smear Result No Acid Fast Bacillus Present (Negative) Due to limited sensitivity of the smear, results should be used as an adjunct in evaluating the patient's status. This specimen has been sent to referral laboratory for mycobacterial culture. * ML - Main Lab . END OF REPORT DEPARTMENT OF PATHOLOGY, [address] [place] [address] Vance Rossi M.D. Director [facility] # [id number] 11 SEE RESULT BELOW Name: AUDELIA MOONEY : [address]: Kylie Lai MD Acct: [id number] Unit: [id number] AGE: 38 Location: SP Re11/24/18 SEX: F Status: REG REF SPEC: [id number] DEEPIKA: 11/24/18-[address]: Kylie Lai MD REQ: [id number] RECD: 11/24/18 STATUS: STEPHANIE CARO DR: Alfa Prabhakar MD _ ORDERED: FNA-IMG GUID BX, LEVEL 4, CYTO ADEQ-1ST P ADDENDUM Flow cytometry has been performed at [facility], [place], [place]. The testing reveals: FINAL DIAGNOSIS: Specimen Source: Retroperitoneal lymph node Flow cytometry immunophenotypic analysis: No immunophenotypic abnormality identified. Interpretative data: Lymphocytes: 81% of WBCs B-cells: 16% of lymphocytes with no evidence of light chain restriction or other immunophenotypic abnormality. T-cells/NK cells: No aberrant population detected. Markers tested: CD3, CD5, CD7, CD10, CD19, CD20, CD23, CD45, kappa surface light chains, lambda surface light chains, 7-AAD. Quality Assessment: Acceptable Viability: Acceptable Viable lymphocytes (7-AAD): 99% of gated Specimen received within validated guidelines. A Yang-Giemsa stained slide prepared from the flow cytometry specimen was examined for quality purposes. Electronically signed by: Vance Rossi MD 11/28/18 2070 Technical component performed by: [place] [address] Intelligence Consultant: Navin Polanco II, MD, PhD. CONTINUED ON NEXT PAGE DEPARTMENT OF PATHOLOGY, [address] [place] [address] Vance Rossi M.D. Director [facility] # [id number] RUN DATE: 11/29/18 [facility] LAB LIVE PAGE 2 Patient: AUDELIA MOONEY [id number] (Continued) ADDENDUM (Continued) Addendum Signed (signature on file) Guera Archer MD 10/18 1249 FINAL DIAGNOSIS Retroperitoneal lymph node, CT guided fine needle aspiration: -- Mixed lymphoid elements compatible with reactive lymph node. -- No evidence of metastatic neoplasia identified. -- No evidence of Hodgkin's disease or other hematolymphoid neoplasm . Chuyita comment. Comment: Concurrent flow cytometric evaluation demonstrates no evidence of an immunophenotypic abnormality. A cell block was prepared in the evaluation of this specimen. Smears and cell block reveal similar findings. RETROPERITONEAL - CT GUIDED RETROPERITONEAL LYMPH NODE FINE NEEDLE ASPIRATION CLINICAL HISTORY Retroperitoneal lymph node. Newly found lung nodules. IMMEDIATE INTERPRETATION Passes 1-3 adequate CONTINUED ON NEXT PAGE DEPARTMENT OF PATHOLOGY, [address] [place] [address] Vance Rossi M.D. Director ANGELICANC # [id number] RUN DATE: 11/29/18 [facility] LAB LIVE PAGE 3 Patient: AUDELIA MOONEY [id number] (Continued) GROSS DESCRIPTION (Continued) GROSS DESCRIPTION CT Guided, fine needle aspiration x 3 passes with 3 alcohol fixed slide(s), 1 Air dried slide(s), needle rinse in formalin for cell block and The specimen is sent to [place], [place] for flow cytometry on 11/24/18. Signed by and Reported on: Vance Rossi MD 09/17 1654 END OF REPORT DEPARTMENT OF PATHOLOGY, [address] [place] [address] Vance Rossi M.D. Director [facility] # [id number] 12 FINAL DIAGNOSIS: Specimen Source: Retroperitoneal lymph node Flow cytometry immunophenotypic analysis: No immunophenotypic abnormality identified. Interpretative data: Lymphocytes: 81% of WBCs B-cells: 16% of lymphocytes with no evidence of light chain restriction or other immunophenotypic abnormality. T-cells/NK cells: No aberrant population detected. Markers tested: CD3, CD5, CD7, CD10, CD19, CD20, CD23, CD45, kappa surface light chains, lambda surface light chains, 7-AAD. Quality Assessment: Acceptable Viability: Acceptable Viable lymphocytes (7-AAD): 99% of gated Specimen received within validated guidelines. A Yang-Giemsa stained slide prepared from the flow cytometry specimen was examined for quality purposes. Electronically signed by: Vance Rossi MD 11/28/18 9903 Technical component performed by: [place] [address] Intelligence Consultant: Navin Polanco II, MD, PhD. 13 Because ethnic data is not always readily available, this report includes an eGFR for both -Americans and non- Americans. The National Kidney Disease Education Program (NKDEP) does not endorse the use of the MDRD equation for patients that are not between the ages of 18 and 70, are , have extremes of body size, muscle mass, or nutritional status, or are non- or non-. According to the National Kidney Foundation, irrespective of diagnosis, the stage of the disease is based on the level of kidney function: Stage Description GFR(mL/min/1.73 m(2)) 1 Kidney damage with normal or decreased GFR 90 2 Kidney damage with mild decrease in GFR 60-89 3 Moderate decrease in GFR 30-59 4 Severe decrease in GFR 15-29 5 Kidney failure <15 (or dialysis) 14 Microcytic anemia with red cell anisocytosis. Reviewed by Guera Archer MD 15 SEE RESULT BELOW Name: AUDELIA MOONEY : [address]: Joe Weems MD Acct: [id number] Unit: [id number] AGE: 34 Location: [facility] Re01/07/15 SEX: F Status: REG REF SPEC: [id number] DEEPIKA: 01/07/15-[address]: Joe Weems MD REQ: [id number] RECD: 01/07/15 STATUS: COMP _ SOURCE: FACE SPDESC: ORDERED: Culture Stain Specimen Description NOSE TISSUE Procedure Result Verified Site Wound/Misc Gram Stain Final 01/08/15- 09 ML 1+ Neutrophils 2+ Gram Positive Cocci Wound/Misc Culture Final 01/09/15- 1213 ML Organism 1 STAPHYLOCOCCUS AUREUS Quantity 2+ 1. STAPHYLOCOCCUS AUREUS M.I.C. RX --------- ------ Penicillin >=0.5 R Clindamycin <=0.25 S Erythromycin <=0.25 S Gentamicin <=0.5 S Linezolid 2 S Nitrofurantoin <=16 S Oxacillin 0.5 S * Quinupristin/Dalfopristin 0.5 S Rifampin <=0.5 S Tetracycline <=1 S Doxycycline - Deduced S * Minocycline - Deduced S Trimethoprim/Sulfamethoxazole <=10 S Vancomycin 1 S Imipenem-Deduced S CONTINUED ON NEXT PAGE * ML=Testing performed at Main Lab DEPARTMENT OF PATHOLOGY, [address] [place] [address] Vance Rossi M.D. Director [facility] # [id number] Patient: AUDELIA MOONEY [id number] (Continued) Specimen: [id number] Collected: 01/07/15 Received: 01/07/15 (Continued) Procedure Result Verified Site Wound/Misc Culture Final (continued) 01/09/15- 1213 1. STAPHYLOCOCCUS AUREUS (continued) M.I.C. RX --------- ------ * Ampicillin/Sulbactam-Deduced S Cefazolin-Deduced S * These antibiotics are not available in the [facility] Formulary Contact the Microbiology Department for any additional antibiotic reporting. * ML - MAIN LAB ([facility]) . END OF REPORT * ML=Testing performed at Main Lab DEPARTMENT OF PATHOLOGY, [address] [place] [address] Vance Rossi M.D. Director [facility] # [id number] Procedures Date Code Description Status 08/26/2017 06751 Inject/Drain Joint/Bursa Major W/O US Completed 12/30/2015 72496 Tympanometry Completed 10/29/2014 76496 Myringotomy W/Tube, OS Completed 02/19/2014 65005 Tympanometry Completed 01/15/2014 20247 Myringotomy W/Tube, OS Completed 10/30/2013 66218 Tympanometry Completed Encounters Type Date Location Provider Dx Diagnosis Office Visit 02/07/2019 Pulmonology And Alfonzo Talleyid, J98.4 Other disorders of 1:40p Sleep Services Of lung Senior [employer] Office Visit 01/17/2019 [facility] Dermatology Justina Valladares, L30.9 Dermatitis, 12:40p MD unspecified Office Visit 08/26/2017 [facility] Rj Leanne M25.561 Pain in right knee 1:00p Of Miki Fuller MD M17.11 Unilateral primary osteoarthritis, right knee Office Visit 12/30/2015 2:15p [facility] H65.22 Chronic ser[facility], Cyrus left ear Office Visit 12/16/2015 1:30p [facility] H65.22 Chronic serous [facility] otitis media, Nicholas left ear H69.81 Other specified disorders of Eustachian tube, right ear Office Visit 11/04/2015 2:15p [facility] H69.81 Other specified [facility] disorders of Cyrus Eustachian tube, right ear H92.01 Otalgia, right ear M26.60 Temporomandibular joint disorder, unspecified Office Visit 01/14/2015 2:30p [facility], 684 Impetigo C.M.A. AT [facility] Office Visit 01/07/2015 1:30p [facility], 684 Impetigo C.M.A. AT [facility] 381.81 Eustachian Tube Dysfunction 381.10 Otitis Media Simple Or Unspec Chronic Office Visit 11/12/2014 1:45p [facility] 381.10 Otitis Media C.M.A. AT [facility] Denise Simple Or Cyrus Unspec Chronic 381.81 Eustachian Tube Dysfunction Office Visit 10/29/2014 1:45p [facility] 381.10 Otitis Media C.M.A. 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 Or Cyrus Unspec Chronic 381.81 Eustachian Tube Dysfunction 383.1 Mastoiditis Chronic Office Visit 10/08/2014 2:45p [facility] 381.81 Eustachian Tube C[facility] Dysfunction Cyrus 381.10 Otitis Media Simple Or Unspec Chronic 388.60 Otorrhea Unspec Office Visit 02/19/2014 1:15p [facility] 381.81 Eustachian Tube C.M.A. AT [facility] [place] Dysfunction Cyrus 381.10 Otitis Media Simple Or Unspec Chronic Office Visit 12/11/2013 [facility] 381.4 Otitis Media Acute 1:30p Of [facility] Or Chronic Cyrus Nonsuppurative 472.0 Rhinitis Chronic Office Visit 10/30/2013 [facility] 381.4 Otitis Media Acute 1:15p Of C.M.A. AT [facility] [place] Thien Or Chronic Cyrus Nonsuppurative 381.81 Eustachian Tube Dysfunction Office Visit 10/23/2013 2:15p [facility] 388.60 Otorrhea Unspec C.M.A. AT [facility] [place] Cyrus 384.21 Tympanic Membrane Central Perforation Office Visit 08/04/2012 9:00a Kelsie Spangler.86 Derangement Joint Services Of [place] Other Not C.M.A. Elsewhere Class Lower Leg Office Visit 06/03/2012 9:00a Kelsie Spangler.86 Derangement Joint Services Of [facility] Other Not C.M.A. Elsewhere Class Lower Leg Office Visit 04/22/2012 9:00a Deena Ayala 844.9 Sprains & Strains Services Of [place] Knee & Leg Unspec C.M.A. Office Visit 03/10/2012 9:00a Annie Spangler4.9 Sprains & Strains Services Of M.D. Knee & Leg Unspec C.M.A. Office Visit 02/26/2012 8:30a Orthopedic Myles Ayala, 924.11 Contusion Knee Services Of [place] Plan of Treatment Future Appointment(s):04/19/2019 2:00 pm - Justina Valladares MD at [facility]em30/11/2019 - Alfonzo Yoo MDJ98.4 Other disorders of lungNew Xrays: CT Chest W/O, Ordered: 02/07/19Comments:We will repeat the CT chest to evaluate nodules and lymph nodes. We may elect to biopsy the lymph nodes if getting bigger. Could be Sarcoid? We will check Pfts also.Follow up:3 months.
--- OUTSIDE RECORDS SUMMARY | 2019-03-09 20:27 | XMS REPORT | Continuity of Care Document ---
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 (Sgot) 44 U/L High 12-42 eGFR Non- 115.9 > 60 eGFR 149.0 > 60 33 Urinalysis W/Microscopic 04/26/2011 [facility] Ua Color YELLOW Yellow [phone] Appearance-Urine CLEAR Clear Specific [place]-Ur 1.030 1.010-1.030 Esterase-Urine 1+ Abnormal Negative Nitrite NEGATIVE Negative Yfpfyanqggrn-Tr-KFZ NEGATIVE Negative Protein-Urine NEGATIVE Negative PH-Urine 6.0 5-9 Blood-Urine NEGATIVE Negative Ketones-Urine TRACE Abnormal Negative Bilirubin-Ur NEGATIVE Negative Glucose-Urine NEGATIVE Negative WBC-Urine 2-5 0-5 RBC-Urine RARE 0-2 Mucus Urine MODERATE None Epith Cells-Ur MODERATE None Bacteria-Urine TRACE None Urine Culture 04/26/2011 [facility] Urine Culture ENTEROBACTERIACE < SEE 34 & Sensitivi [phone] Sensitivi NOTE> CBC Auto Diff 04/26/2011 [facility] White Blood 6.4 CUMM 4.8-8 [phone] Count 0.8 Red Cell Count 4.01 CUMM Low 4.2-5.4 Hemoglobin 11.4 g/dL Low 12.0-16.0 Hematocrit 33 % Low 35-47 Mean Corpuscular Volume 82 um3 79-97 Mean Corpuscular Hemoglob 29 pg 27-31 Mean Corpuscular HGB Cone 35 g/dL 32-36 Redcell Distribution WDTH 14 % 10.5-15 Platelet Count 273 CUMM 150-450 Mean Platelet Volume 6.7 um3 Low 7.4-10.4 Gran % 72.0 % 38-83 Lymph % 14.7 % Low 25-47 Mononuclear % 11.2 % High 1-9 Eosinophil % 1.6 % 0-6 Basophil % 0.5 % 0-2 Abs Lymphs 0.9 Low 1.0-4.8 Abs Mononuclear 0.7 0-0.8 Absolute Neutrophil Count 4.6 1.5-7.7 Abs Eosinophils 0.1 0-0.6 Abs Basophils 0 0-0.2 35 CBC Auto Diff 04/10/2011 [facility] White Blood Count 16.3 CUMM High 4.8-10.8 [phone] Red Cell Count 3.95 CUMM Low 4.2-5.4 Hemoglobin 12.1 g/dL 12.0-16.0 Hematocrit 34 % Low 35-47 Mean Corpuscular Volume 85 um3 79-97 Mean Corpuscular Hemoglob 31 pg 27-31 Mean Corpuscular HGB Cone 36 g/dL 32-36 Redcell Distribution WDTH 14 % 10.5-15 Platelet Count 178 CUMM 150-450 Mean Platelet Volume 7.6 um3 7.4-10.4 36 Manual Differential 04/10/2011 [facility] Polysegmented Neutrophil 81 % 38-83 [phone] Band Neutrophil 8 % 0-8 Lymphocyte 6 % Low 25-47 Monocyte 4 % 0-13 Basophil 1 % 0-2 Absolute Neutrophil Count 14.5 RBC Morphology NORMAL (HCG) 04/02/2011 [facility] Specific [place] 1.019 1.010- 1.030 Urine [phone] Urine NEGATIVE Negative 37 Throat-Beta Strept 12/19/2010 [facility] Throat-Beta Strep Culture NF 38 [phone] Urine Micro Inhouse 11/14/2010 In House Ua WBC 20-30 Ua RBC 2-3 Ua Casts - Ua Epi many Ua Other - Ua Glucose - Ua Bilirubin - Ua Ketones - Ua Specific [place] 1.015 Ua Blood - Ua PH 6.5 Ua Protein tr Ua Urobilinogen - Ua Nitrite - Ua Leukocytes mod Laboratory test finding 11/14/2010 In House Culture Throat Rapid Screen neg Culture Throat neg Test Urine neg Hemoglobin A1c 5.1 Laboratory test 11/14/2010 [facility] Cytology 39 finding [phone] <SEE NOTE> GC/Chlamydia 11/14/2010 [facility] Chlamydia N 40 Aptima [phone] Trachomatis Rna Laboratory test 11/14/2010 [facility] GC (N. N 41 finding [phone] Gonorrhoeae) Rna CBC With Manual 11/14/2010 [facility] White Blood 6.9 CUMM 4.8- Diff [phone] Count 10.8 Red Cell Count 4.42 CUMM 4.2-5.4 Hemoglobin 13.0 g/dL 12.0-16.0 Hematocrit 37 % 35-47 Mean Corpuscular Volume 83 um3 79-97 Mean Corpuscular Hemoglob 29 pg 27-31 Mean Corpuscular HGB Cone 35 g/dL 32-36 Redcell Distribution WDTH 13 % 10.5-15 Platelet Count 173 CUMM 150-450 Mean Platelet Volume 7.3 um3 Low 7.4-10.4 Polysegmented Neutrophil 67 % 38-83 Band Neutrophil 2 % 0-8 Lymphocyte 18 % Low 25-47 Monocyte 13 % 0-13 Absolute Neutrophil Count 4.7 RBC Morphology NORMAL Comp Metabolic Panel 11/14/2010 [facility] Sodium 139 mmol/L 135- 145 [phone] Potassium 3.8 mmol/L 3.5-5.0 Chloride 108 mmol/L 101-111 Co2 (Carbon Dioxide) 27.0 mmol/L 22-32 Anion Gap 4.0 mmol/L 2-11 42 Glucose 87 mg/dL 70-100 BUN 6 mg/dL 6-24 Creatinine 0.70 mg/dL 0.50-1.40 One Over Creatinine 1.40 BUN/Creatinine Ratio 8.6 8-20 Calcium 8.0 mg/dL Low 8.1-9.9 Total Protein 5.4 GM/DL Low 6.2-8.1 Albumin 4.0 GM/DL 3.6-5.4 Globulin 1.4 GM/DL Low 2-4 Albumin/Globulin Ratio 2.9 1-3 Bilirubin Total 0.7 mg/dL 0.4-1.5 43 Alkaline Phosphatase 65 U/L 30-110 Alt (SGPT) 20 U/L 14-54 Ast (Sgot) 25 U/L 12-42 eGFR Non- 97.6 > 60 eGFR 125.5 > 60 44 Laboratory test finding 11/14/2010 [facility] FSH 8.51 MIU/ML 45 [phone] Lutenizing Hormone 4.30 MIU/ML 46 Prolactin 12.79 NG/ML 1.0-25.0 TSH 2.35 MIU/ML 0.34-5.60 Culture Urine Inhouse 11/05/2010 In [place] Colonies pos Laboratory test finding 11/05/2010 [facility] Cytology - 47 [phone] <SEE NOTE> Urine Micro Inhouse 11/05/2010 In [place] Ua WBC 30-40 Ua RBC occ Ua Casts - Ua Epi 4-6 Ua Other bacteria Ua Glucose - Ua Ketones - Ua Specific [place] 1.020 Ua Blood - Ua PH 6.0 Ua Protein - Ua Urobilinogen - Ua Nitrite - Ua Leukocytes 2+ Laboratory test finding 11/05/2010 In [place] Test Urine neg Ua Inhouse 06/05/2010 In [place] Ua Glucose - Ua Bilirubin - Ua Ketones - Ua Specific [place] 1.020 Ua Blood - Ua PH 6.5 Ua Protein 1+ Ua Urobilinogen - Ua Nitrite - Ua Leukocytes 2+ Culture Urine 06/05/2010 In [place] Col[place] positive Inhouse Urine Culture & 04/21/2010 [facility] Urine Culture ESCHERICHIA COLI 48 Sensitivi [phone] Sensitivi Ursc-1 04/21/2010 [facility] Ampicillin >=32 R [phone] Amikacin <=2 S Ciprofloxacin <=0.25 S Ceftriaxone <=1 S Cefazolin <=4 S Nitrofurantoin <=16 S Gentamicin <=1 S Imipenem <=1 S Levofloxacin <=0.12 S Trimeth-Sulfa <=20 S Ceftazidime <=1 S Tigecycline <=0.5 S Piperacillin/Tazobactam <=4 S (HCG) 03/18/2010 [facility] Specific [place] 1.024 1.010- 1.030 Urine [phone] Urine NEGATIVE Negative 49 Urinalysis W/Microscopic 03/18/2010 [facility] Ua Color YELLOW Yellow [phone] Appearance-Urine CLEAR Clear Specific [place]-Ur 1.024 1.010-1.030 Esterase-Urine 2+ Abnormal Negative Nitrite NEGATIVE Negative Gwwaedqhmoir-Bp-MZS NEGATIVE Negative Protein-Urine NEGATIVE Negative PH-Urine 5.5 5-9 Blood-Urine NEGATIVE Negative Ketones-Urine NEGATIVE Negative Bilirubin-Ur NEGATIVE Negative Glucose-Urine NEGATIVE Negative WBC-Urine 25-30 Abnormal 0-5 RBC-Urine 1-5 0-2 Mucus Urine MODERATE None Epith Cells-Ur MODERATE None Bacteria-Urine TRACE None Amorphous Sed-U 2+ None Urine Culture & 03/18/2010 [facility] Urine Culture NG 50 Sensitivi [phone] Sensitivi Laboratory test 08/16/2009 [facility] Clotest N^NEGATIVE^C finding [phone] LO Surgical Pathology 08/16/2009 [facility] Surgical Pathology - 51 [phone] ---- <SEE NOTE> Urine Micro Inhouse 07/02/2009 In House Urine Microscopic 6-8rbc,occ Inhouse epi Ua Inhouse 07/02/2009 In House Ua Glucose - Ua Bilirubin - Ua Ketones - Ua Specific [place] 1.005 Ua Blood - Ua PH 5.0 Ua Protein - Ua Urobilinogen - Ua Nitrite - Ua Leukocytes sm Urine Culture And Sens 06/12/2009 [facility] Urine Culture SN1 52 [phone] Sensitivi Urine Culture And Sens 11/25/2008 [facility] Urine Culture NF1 53 [phone] Sensitivi Culture Urine Inhouse 06/22/2008 In House [place] NEG Ua Inhouse 06/22/2008 In House Ua Glucose - Ua Bilirubin - Ua Ketones - Ua Specific [place] 1.030 Ua Blood lg Ua PH 5.0 Ua Protein - Ua Urobilinogen - Ua Nitrite - Ua Leukocytes sm Throat-Beta Strep 06/20/2008 [facility] Throat-Beta Strep Culture NF 54 [phone] Urinalysis Stat 06/18/2007 [facility] Ua Color YELLOW [phone] Appearance-Urine CLEAR Bilirubin-Ur NEGATIVE Negative Blood-Urine 1+ Abnormal Negative Esterase-Urine 2+ Abnormal Negative Glucose-Urine NEGATIVE Negative Ketones-Urine TRACE Abnormal Negative Nitrite NEGATIVE Negative PH-Urine 6.0 5-9 Protein-Urine 1+ Abnormal Negative Pmvxkbsojgdq-Ve-LAE POSITIVE Abnormal Negative Specific [place]-Ur 1.030 1.010-1.030 Urinalysis W/Microscopic 06/18/2007 [facility] Ua Color YELLOW [phone] Appearance-Urine CLEAR Bacteria-Urine TRACE Bilirubin-Ur NEGATIVE Negative Blood-Urine 1+ Abnormal Negative Epith Cells-Ur MODERATE Esterase-Urine 2+ Abnormal Negative Glucose-Urine NEGATIVE Negative Ketones-Urine TRACE Abnormal Negative Mucus Urine MODERATE Nitrite NEGATIVE Negative PH-Urine 6.0 5-9 Protein-Urine 1+ Abnormal Negative RBC-Urine 0-2 0-2 Xydkejmrqbll-Rc-FIO POSITIVE Abnormal Negative Specific [place]-Ur 1.030 1.010-1.030 WBC-Urine 3-5 0-5 CBC With Electronic 06/18/2007 [facility] White Blood 8.2 CUMM 4.8- 10.8 Diff Stat [phone] Count Abs Basophils 0 0-0.2 Abs Eosinophils 0.1 0-0.6 Absolute Neutrophil Count 5.9 1.5-7.7 Abs Lymphs 1.4 1.0-4.8 Abs Mononuclear 0.8 0-0.8 Basophil % 0.4 % 0-2 Hematocrit 42 % 35-47 Hemoglobin 13.8 g/dL 12.0-16.0 Eosinophil % 1.0 % 0-6 Gran % 71.5 % 38-83 Lymph % 17.0 % Low 20-45 Mean Corpuscular HGB Cone 33 g/dL 32-36 Mean Corpuscular Hemoglob 27 pg 27-31 Mean Corpuscular Volume 80 um3 79-97 Mean Platelet Volume 7.3 um3 Low 7.4-10.4 Mononuclear % 10.1 % High 1-9 Platelet Count 310 CUMM 150-450 Red Cell Count 5.21 CUMM 4.2-5.4 Redcell Distribution WDTH 13 % 10.5-15 CMP 06/18/2007 [facility] One Over Creatinine 1.42 [phone] Anion Gap 2.0 mmol/L 2-11 55 Albumin/Globulin Ratio 1.9 1-3 Albumin 4.6 GM/DL 3.6-5.4 Alkaline Phosphatase 117 U/L High 30-110 Alt (SGPT) 35 U/L 14-54 Ast (Sgot) 57 U/L High 12-42 BUN 7 mg/dL 6-24 Calcium 8.2 mg/dL Low 8.7-10.2 Chloride 105 mmol/L 101-111 Co2 (Carbon Dioxide) 25.0 mmol/L 22-32 Globulin 2.4 GM/DL 2-4 Glucose 90 mg/dL 70-105 Potassium 3.5 mmol/L 3.5-5.0 Sodium 145 mmol/L 135-145 Bilirubin Total 1.3 mg/dL 0.4-1.5 Total Protein 7.0 GM/DL 6.2-8.1 BUN/Creatinine Ratio 10.0 8-20 Creatinine 0.7 mg/dL 0.5-1.4 Laboratory test 06/18/2007 [facility] Serum Qual HCG NEGATIVE Negative 56 finding [phone] Culture Urine 06/18/2007 [facility] Urine Culture SPECIMEN 57 [phone] Sensitivi CONTAIN <SEE NOTE> Liver Function 02/06/2005 [facility] Albumin/Globuli 2.2 1-3 Panel [phone] n Ratio Albumin 4.1 GM/DL 3.6-5.4 Alkaline Phosphatase 99 U/L 30-110 Alt (SGPT) 19 U/L 14-54 Ast (Sgot) 26 U/L 12-42 Bilirubin Direct 0.1 mg/dL 0.1-0.5 Globulin 1.9 GM/DL Low 2-4 Indirect Bilirubin 0.6 mg/dL 0.1-0.75 Bilirubin Total 0.7 mg/dL 0.4-1.5 Total Protein 6.0 GM/DL Low 6.2-8.1 Laboratory test 02/06/2005 [facility] GGTP 21 U/L 7-50 finding [phone] CBC With Electronic 02/06/2005 [facility] White Blood 7.4 CUMM 4.8- 10.8 Diff [phone] Count Abs Basophils 0 0-0.2 Abs Eosinophils 0.1 0-0.6 Abs Grans 5.1 1.5-7.7 Abs Lymphs 1.6 1.0-4.8 Abs Mononuclear 0.6 0-0.8 Basophil % 0.5 % 0-2 Hematocrit 37 % 35-47 Hemoglobin 11.9 g/dL Low 12.0-16.0 Eosinophil % 1.6 % 0-6 Gran % 68.2 % 38-83 Lymph % 21.8 % 20-45 Mean Corpuscular HGB Cone 32 g/dL 32-36 Mean Corpuscular Hemoglob 25 pg Low 27-31 Mean Corpuscular Volume 79 um3 79-97 Mean Platelet Volume 7.6 um3 7.4-10.4 Mononuclear % 7.9 % 1-9 Platelet Count 225 CUMM 150-450 Red Cell Count 4.71 CUMM 4.2-5.4 Redcell Distribution WDTH 14 % 10.5-15 Laboratory test 02/06/2005 [facility] Ferritin < 10 NG/ML Low 11.0- 307 finding [phone] Iron & Iron Binding 02/06/2005 [facility] Iron Total 20 g/dL Low 28 -170 Capacity [phone] Total Iron Binding Capacity 464 g/dL High 250-450 % Iron Saturation 4 % Low 15-55 Unsaturated Iron Binding 444 g/dL Laboratory test 01/21/2005 [facility] Urine Culture SPECIMEN 58 finding [phone] Sensitivi CONTAIN <SEE NOTE> Culture Urine 2005 In House Presumptive 10 to 6th High P/DR. 59 Inhouse gram + Silco ff Pseudomonas cocci Laboratory test 01/19/2005 In House Urine Microscopic SEE RESULT NOTES finding Inhouse Ua Inhouse 01/19/2005 In House Ua Glucose NEG Ua Bilirubin NEG Ua Ketones NEG Ua Specific [place] 1.025 Ua Blood 3+ HAS MENSES Ua PH 5.0 Ua Protein 2+ Ua Urobilinogen NEG Ua Nitrite NEG Ua Leukocytes 2+ Ua Inhouse 01/14/2005 In House Ua Glucose neg Ua Bilirubin neg Ua Ketones neg Ua Specific [place] 1.005 Ua Blood sm Ua PH 5.0 Ua Protein neg Ua Urobilinogen neg Ua Nitrite neg Ua Leukocytes mod CBC With Electronic 01/13/2005 [facility] White Blood 11.6 CUMM High 4.8-10.8 Diff [phone] Count Abs Basophils 0 0-0.2 Abs Eosinophils 0 0-0.6 Abs Grans 8.8 High 1.5-7.7 Abs Lymphs 1.5 1.0-4.8 Abs Mononuclear 1.2 High 0-0.8 Basophil % 0.2 % 0-2 Hematocrit 37 % 35-47 Hemoglobin 12.2 g/dL 12.0-16.0 Eosinophil % 0.2 % 0-6 Gran % 76.3 % 38-83 Lymph % 12.8 % Low 20-45 Mean Corpuscular HGB Cone 33 g/dL 32-36 Mean Corpuscular Hemoglob 25 pg Low 27-31 Mean Corpuscular Volume 77 um3 Low 79-97 Mean Platelet Volume 6.7 um3 Low 7.4-10.4 Mononuclear % 10.5 % High 1-9 Platelet Count 338 CUMM 150-450 Red Cell Count 4.81 CUMM 4.2-5.4 Redcell Distribution WDTH 15 % 10.5-15 Comp Metabolic Panel 01/13/2005 [facility] Anion Gap 8.0 mmol/L 2- 11 60 [phone] Albumin/Globulin Ratio 1.5 1-3 Albumin 3.8 GM/DL 3.6-5.4 Alkaline Phosphatase 151 U/L High 30-110 Alt (SGPT) 51 U/L 14-54 Ast (Sgot) 60 U/L High 12-42 BUN 3 mg/dL Low 6-24 Calcium 8.6 mg/dL Low 8.7-10.2 Chloride 106 mmol/L 101-111 Co2 (Carbon Dioxide) 28.0 mmol/L 22-32 Creatinine 0.6 mg/dL 0.5-1.4 Globulin 2.5 GM/DL 2-4 Glucose 88 mg/dL 70-105 Potassium 4.2 mmol/L 3.5-5.0 Sodium 142 mmol/L 135-145 Bilirubin Total 1.1 mg/dL 0.4-1.5 Total Protein 6.3 GM/DL 6.2-8.1 BUN/Creatinine Ratio 5.0 Low 8-20 Liver Function Panel 04/18/2004 [facility] Albumin/Globulin Ratio 2.3 1-3 [phone] Albumin 4.3 GM/DL 3.6-5.4 Globulin 1.9 GM/DL Low 2-4 Total Protein 6.2 GM/DL 6.2-8.1 Alkaline Phosphatase 122 U/L High 30-110 Alt (SGPT) 50 U/L 14-54 Ast (Sgot) 42 U/L 12-42 Bilirubin Direct 0.3 mg/dL 0.1-0.5 Indirect Bilirubin 1.0 mg/dL High 0.1-0.75 Bilirubin Total 1.3 mg/dL 0.4-1.5 Basic Metabolic Panel 04/18/2004 [facility] Anion Gap 7.0 mmol/L 2- 11 61 [phone] BUN 6 mg/dL 6-24 Calcium 9.0 mg/dL 8.7-10.2 Chloride 100 mmol/L Low 101-111 Co2 (Carbon Dioxide) 30.0 mmol/L 22-32 Creatinine 0.6 mg/dL 0.5-1.4 Glucose 70 mg/dL 70-105 Potassium 4.3 mmol/L 3.5-5.0 Sodium 137 mmol/L 135-145 BUN/Creatinine Ratio 10.0 8-20 CBC With Manual Diff 04/18/2004 [facility] Platelet Count 267 CUMM 150-450 [phone] White Blood Count 14.3 CUMM High 4.8-10.8 Hematocrit 43 % 35-47 Hemoglobin 14.9 g/dL 12.0-16.0 Mean Corpuscular HGB Cone 35 g/dL 32-36 Mean Corpuscular Hemoglob 29 pg 27-31 Mean Corpuscular Volume 85 um3 79-97 Mean Platelet Volume 6.9 um3 Low 7.4-10.4 Red Cell Count 5.09 CUMM 4.2-5.4 Redcell Distribution WDTH 12 % 10.5-15 RBC Morphology NORMAL Eosenophil 1 % 0-6 Lymphocyte 17 % 5-47 Monocyte 9 % 0-13 Polysegmented Neutrophil 73 % 38-83 1 [id number] 2 SEE RESULT BELOW Name: PREETI NEGRETEAUDELIA M : [address]: Minerva Hand MD Acct: [id number] Unit: [id number] AGE: 39 Location: [facility] Re02/03/19 SEX: F Status: DEP ER SPEC: [id number] DEEPIKA: 02/03/19-59 [facility] DR: Anselmo ACEVES REQ: [id number] RECD: 02/03/19 STATUS: RES [facility] DR: Minerva Camarena MD _ SOURCE: KNEE,LEFT SPDESC: ORDERED: MRSA/SA SSTI, Culture Stain COMMENTS: [id number] Procedure Result Reported Site MRSA/S. aureus SSTI PCR PENDING Wound/Misc Gram Stain Final 02/03/19- 1418 ML 3+ Epithelial Cells 2+ Neutrophils 1+ Gram Positive Cocci Wound/Misc Culture PENDING * ML - Main Lab . END OF REPORT DEPARTMENT OF PATHOLOGY, [address] [place] [address] Vance Rossi M.D. Director [facility] # [id number] 3 SEE RESULT BELOW Name: AUDELIA MOONEY : [address]: Minerva Hand MD Acct: [id number] Unit: [id number] AGE: 39 Location: [facility] Re02/03/19 SEX: F Status: DEP ER SPEC: [id number] DEEPIKA: 02/03/19 [facility] [address]: Anselmo ACEVES REQ: [id number] RECD: 02/03/191240 STATUS: COMP [facility] DR: Minerva Camarena MD _ SOURCE: KNEE,LEFT SPDESC: ORDERED: MRSA/SA SSTI, Culture Stain COMMENTS: Verbal to [id number] by [id number] at 1527 on 02/03/19. Results read back accurately. [id number] Procedure Result Reported Site MRSA/S. aureus SSTI PCR Final 02/03/19- 152 ML Organism 1 MRSA NEGATIVE Organism 2 S.AUREUS POSITIVE Wound/Misc Gram Stain Final 02/03/19- 1418 ML 3+ Epithelial Cells 2+ Neutrophils 1+ Gram Positive Cocci Wound/Misc Culture Final 02/05/19- 928 ML Organism 1 STAPHYLOCOCCUS AUREUS Quantity 2+ 1. STAPHYLOCOCCUS AUREUS M.I.C. RX --------- ------ Penicillin 0.12 S Clindamycin <=0.25 S Erythromycin 0.5 S Gentamicin <=0.5 S Linezolid 4 S Oxacillin 0.5 S * Quinupristin/Dalfopristin <=0.25 S Rifampin <=0.5 S Tetracycline <=1 S CONTINUED ON NEXT PAGE DEPARTMENT OF PATHOLOGY, [address] [place] [address] Vance Rossi M.D. Director [facility] # [id number] Patient: AUDELIA MOONEY [id number] (Continued) Specimen: [id number] Collected: 02/03/19 Received: 02/03/19-1239 (Continued) Procedure Result Reported Site Wound/Misc Culture Final (continued) 02/05/19- 928 1. STAPHYLOCOCCUS AUREUS (continued) M.I.C. RX --------- ------ Doxycycline - Deduced S * Minocycline - Deduced S Trimethoprim/Sulfamethoxazole <=10 S Vancomycin 1 S Imipenem-Deduced S * Ampicillin/Sulbactam-Deduced S Cefazolin-Deduced S * These antibiotics are not available in the [facility] Formulary Contact the Microbiology Department for any additional antibiotic reporting. * - Main Lab . END OF REPORT DEPARTMENT OF PATHOLOGY, [address] [place] [address] Vance Rossi M.D. Director [facility] # [id number] 4 Normal Range 180 to 914 Indeterminate Range 145 to 180 Deficient Range <145 5 Consistent with Previous Results Reported on 10/12/18 6 Test Performed by: [address] [address] 7 Interpretation: Weak Positive (1.1-2.9) REFERENCE VALUE <=1.0 (Negative) Test Performed by: [facility] [address] [place] [address] 8 FNA OF LUNG LEFT UPPER 9 SOURCE: LUNG, fna left upper lung MYCOBACTERIAL CULTURE FINAL No growth after 42 days of incubation. Test Performed by: [address] [id number] 10 SEE RESULT BELOW Name: AUDELIA MOONEY : [address]: Kylie Lai MD Acct: [id number] Unit: [id number] AGE: 38 Location: [facility] Re12/13/18 SEX: F Status: REG REF SPEC: [id number] DEEPIKA: 12/13/18-1410 [facility] [address]: Kylie Lai MD REQ: [id number] RECD: 12/13/18-1521 STATUS: LORI CA[facility] DR: Vamshi Camarena MD _ SOURCE: TISSUE [...] . END OF REPORT DEPARTMENT OF PATHOLOGY, [address] [place] [address] Vance Rossi M.D. Director [facility] # [id number] 11 Microcytic anemia with red cell anisocytosis. Reviewed by Guera Archer MD 12 Because ethnic data is not always readily [...] 15-29 5 Kidney failure <15 (or dialysis) 13 Pull Over Machine Operator: [id number] 15 SEE RESULT BELOW Name: AUDELIA MOONEY : [address]: Minerva Hand MD Acct: [id number] Unit: [id number] AGE: 37 Location: [facility] Re06/25/17 SEX: F Status: DEP ER SPEC: [id number] DEEPIKA: 06/25/[address]: Minerva Hand MD REQ: [id number] RECD: 06/25/17 STATUS: LORI CAR[facility] DR: Vamshi Camarena MD _ SOURCE: URINE SPDESC: ORDERED: Urine Culture COMMENTS: [id number] Procedure Result Reported Site Urine Culture Final 06/27/17- 0809 ML Organism 1 ESCHERICHIA COLI [place] Count >100,000 (Many) CFU/ML Organism 2 NORMAL ALFRED [place] Count 25-50,000 (Moderate) CFU/ML 1. ESCHERICHIA COLI M.I.C. RX --------- ------ Ampicillin <=2 S Cefazolin <=4 S Cefepime <=1 S Ceftriaxone <=1 S Ciprofloxacin <=0.25 S Gentamicin <=1 S Levofloxacin <=0.12 S Meropenem <=0.25 S Nitrofurantoin <=16 S Tetracycline <=1 S Pipercillin/Tazobactam <=4 S Trimethoprim/Sulfamethoxazole <=20 S Amoxicillin/Clavulanic Acid <=2 S Aztreonam <=1 S Contact the Microbiology Department for any additional antibiotic reporting. * ML - MAIN LAB ([facility]) . END OF REPORT * ML=Testing performed at Main Lab DEPARTMENT OF PATHOLOGY, [address] [place] [address] Vance Rossi M.D. Director [facility] # [id number] 16 [id number] 17 SEE RESULT BELOW Name: AUDELIA MOONEY : [address]: Yanni Dotson MD Acct: [id number] Unit: [id number] AGE: 36 Location: [facility] Re06/28/16 SEX: F Status: DEP ER SPEC: [id number] DEEPIKA: 06/28/16-[address]: Yadira Ashley NP REQ: [id number] RECD: 06/29/16 STATUS: LORI CARO DR: [facility] Vamshi Camarena MD _ SOURCE: URINE SPDESC: ORDERED: Urine Culture COMMENTS: [id number] Procedure Result Reported Site Urine Culture Final 06/30/16- 1222 ML No growth of clinically significant organisms * ML - MAIN LAB ([facility]) . END OF REPORT * ML=Testing performed at Main Lab DEPARTMENT OF PATHOLOGY, [address] [place] [address] Vance Rossi M.D. Director [facility] # [id number] 18 If is still suspected, please repeat test after 48 to 72 hours. This test detects intact HCG only and is indicated for the early detection of . 19 SEE RESULT BELOW Name: AUDELIA MOONEY : [address]: Oscar Robles MD Acct: [id number] Unit: [id number] AGE: 35 Location: [facility] Re06/30/15 SEX: F Status: DEP ER SPEC: [id number] DEEPIKA: 06/30/15-[address] [facility] [address]: Oscar Robles MD REQ: [id number] RECD: 06/30/15-1212 STATUS: LORI CARO DR: [facility] Vamshi Camarena MD _ SOURCE: URINE SPDESC: ORDERED: Urine Culture Procedure Result Verified Site Urine Culture Final 07/02/15- 1134 ML Organism 1 NORMAL ALFRED [place] Count >100,000 (Many) CFU/ML * ML - MAIN LAB (PSC1) . END OF REPORT * ML=Testing performed at Main Lab DEPARTMENT OF PATHOLOGY, [facility] Rep [place], [place] [address] Vance Rossi M.D. Director [facility] # [id number] 20 Platelets clumped. Unable to perform accurate count. Verbal to MARC Garcia by [id number] at 1258 on 04/23/15. 21 RUN DATE: 08/28/14 [facility] LAB LIVE PAGE 1 RUN TIME: 1420 [facility] [address] [place], [place] [address] Specimen Inquiry Name: AUDELIA BREWER : [address]: Oscar Robles MD Acct: [id number] Unit: [id number] AGE: 34 Location: [facility] Re08/27/14 SEX: F Status: DEP ER SPEC: [id number] DEEPIKA: 08/27/14-[address] [facility] [address]: Lisa Spencer NP REQ: [id number] RECD: 08/28/14 STATUS: LORI CARO DR: [facility] Vamshi Camarena MD _ SOURCE: [facility]: ORDERED: Rapid Flu A B Procedure Result Verified Site Rapid Influenza A B Antigen Final 08/28/14- 1420 ML Organism 1 POSITIVE INFLUENZA A Organism 2 Negative Influenza B Antigen testing by enzyme immunoassay. Cell culture testing can be performed to confirm negative test results and to assist in detecting other viruses that can produce similar clinical symptoms. Please notify Microbiology Lab if further testing is desired. END OF REPORT * ML=Testing performed at Main Lab DEPARTMENT OF PATHOLOGY, [facility] Rep [place] [address] Vance Rossi M.D. Director [facility] # [id number] 22 Nasopharyngeal swab 23 -- REFERENCE VALUE -- Not Applicable 24 -- REFERENCE VALUE -- Not Applicable Laboratory developed test. Test Performed by: [facility] [place] [address] Forming Operator: Kade Altamirano III, M.D. 25 RUN DATE: 09/05/13 [facility] LAB LIVE PAGE 1 RUN TIME: 900 [facility] Trampoline [place], [place] [address] Specimen Inquiry Name: AUDELIA BREWER : [address]: Minerva Hand MD Acct: [id number] Unit: [id number] AGE: 33 Location: [facility] Re09/02/13 SEX: F Status: DEP ER SPEC: [id number] DEEPIKA: 09/02/13-44[address] [facility] [address]: Minerva Hand MD REQ: [id number] RECD: 01/05/14-1203 STATUS: LORI CARO DR: Vamshi Camarena MD _ SOURCE: URINE [facility]: ORDERED: Urine Culture QUERIES: Medent Number [id number] Procedure Result Verified Site Urine Culture Final 09/05/13- 900 ML Organism 1 NORMAL ALFRED Dunreith Count 25-50,000 (Moderate) CFU/ML END OF REPORT * ML=Testing performed at Main Lab DEPARTMENT OF PATHOLOGY, [address] [place] [address] Vance Rossi M.D. Director [place] Permit #[id number] 26 A metabolite of Naproxen, O-desmethylnaproxen, has been shown to interfere with the [place] method for measuring total bilirubin. Samples from patients who have taken Naproxen have shown spurious elevation in total bilirubin levels. 27 Because ethnic data is not always readily [...] 15-29 5 Kidney failure <15 (or dialysis) 28 It is recognized that currently available assays for the detection of antibodies to HIV-1 and/or HIV-2 may not detect all infected individuals. HIV antibodies may be undetectable in some stages of the infection and in some clinical conditions. The performance of this assay has not been established for populations of infants or children. Assayed by Chemiluminescence Microparticle Immunoassay on the [place] [employer] Centaur CP. Values obtained with different methods or kits cannot be used interchangeably.The diagnostic specificity of the ADVIA Centaur 1/O/2 Enhanced assay in the low risk population was 99.90% (6052/6058) with a 95% confidence interval of 99.78 to 99.96%. 29 CONSISTENT WITH PREVIOUS RESULTS 30 If is still suspected, please repeat test after 48 to 72 hours. . This test detects intact HCG only and is indicated for the early detection of . 31 Anion gap measurement may be of limited value in the presence of any alkalosis, especially in a combined acid base disorder. . 32 A metabolite of Naproxen, O-desmethylnaproxen, has been shown to interfere with the [place] method for measuring total bilirubin. Samples from patients who have taken Naproxen have shown spurious elevation in total bilirubin levels. 33 Because ethnic data is not always readily [...] 15-29 5 Kidney failure <15 (or dialysis) 34 ENTEROBACTERIACEAE 10^1-10,000 ORGANISMS/ML (FEW)^CCU 35 Lymphopenia % 36 Neutrophilia % Lymphopenia % 37 If is still suspected, please repeat test after 48 to 72 hours. . 38 NEGATIVE FOR GROUP A BETA STREPTOCOCCUS 39 ---- RUN DATE: 11/17/10 [facility] NMI LIVE PAGE 1 RUN TIME: 1635 Specimen Inquiry RUN USER: INTERFACE -- Name: AUDELIA BREWER Veronica Accgrace#: [id number] Status: REG REF Re11/14/10 Age/Sex: 30/F Unit#: [id number] Location: [facility] : [birth year] -- Specimen: [id number] STEPHANIE Spec Date: 11/14/[address] [facility] Dr: Day ACEVES Spec Type: CYTOLOGY Received: 11/17/10-15 Copies to: SOURCE ECTOCERVICAL/ENDOCERVICAL Thin Prep with Reflex HPV Test PATIENT INFORMATION ACTUAL COLLECTION DATE: 11/14/10 ? No POST MENOPAUSAL? No HYSTERECTOMY? No PREVIOUS ABNORMAL PAP SMEARS No PATIENT HISTORY: Last menstrual period 6 months ago patient is not ADEQUACY OF SPECIMEN Satisfactory for evaluation * Transformation zone component identified * DIAGNOSIS EPITHELIAL CELL ABNORMALITIES * High grade squamous intraepithelial lesion (HSIL) encompassing: modera te and * severe dysplasia, CIS/CIN2 and CIN3 * This Pap test was evaluated with the assistance of the [employer] Pap Test Imaging System. Due to cytologic findings at the rib sawyer microscope, comprehensive manual rescreening by a Junior High [employer] Teacher was required. The Pap Smear is a screening test designed to aid in the detection of premalign ant and malignant conditions of the uterine cervix. It is not a diagnostic procedure a nd should not be used as the sole means of detecting cervical cancer. Both false- positiv e and false-negative reports do occur. Depending on your risk status, a Pap smear arben uld be obtained and evaluated every one to three years. Initial evaluation performed by Mike TAYLOR(ASCP) 11/17/10 -- DEPARTMENT OF PATHOLOGY, [address] [place] [address] [facility] Permit #[id number] Priti Fink M.D. Assistant Dir ector -- -- RUN DATE: 11/17/10 [facility] NMI LIVE PAGE 2 RUN TIME: 1635 Specimen Inquiry RUN USER: INTERFACE -- Name: AUDELIA BREWER#: [id number] Status: REG REF Re11/14/10 Age/Sex: 30/F Unit#: [id number] Location: [facility] : [birth year] -- -- CONTINUED -- Final Interpretation electronically signed by: VANCE ROSSI MD 11/17/10 16 35 -- -- DEPARTMENT OF PATHOLOGY, [address] [place] [address] [facility] Permit #[id number] Vance Rossi M.D. Director Bigg Redmond M.D. Issuer Dir lonny -- 40 NEGATIVE FOR CHLAMYDIA TRACHOMATIS rRNA A negative result does not preclude the presence of a C.trachomatis or N.gonorrhoeae infection because results are dependent on adequate specimen collection, absence of inhibitors, and sufficient rRNA to be detected. Test results may be affected by improper specimen collection, improper specimen storage, technical error, or specimen mixup. 41 NEGATIVE FOR NEISSERIA GONORRHOEAE rRNA A negative result does not preclude the presence of a C.trachomatis or N.gonorrhoeae infection because results are dependent on adequate specimen collection, absence of inhibitors, and sufficient rRNA to be detected. Test results may be affected by improper specimen collection, improper specimen storage, technical error, or specimen mixup. 42 Anion gap measurement may be of limited value in the presence of any alkalosis, especially in a combined acid base disorder. . 43 A metabolite of Naproxen, O-desmethylnaproxen, has been shown to interfere with the [place]oshni method for measuring total bilirubin. Samples from patients who have taken Naproxen have shown spurious elevation in total bilirubin levels. 44 Because ethnic data is not always readily [...] 15-29 5 Kidney failure <15 (or dialysis) 45 NORMAL RANGE MALES 1 - 20 NORMALLY MENSTRUATING FEMALES - Follicular Phase 3 - 9 - Mid-Cycle Peak 4 - 23 - Luteal Phase 1 - 6 POSTMENOPAUSAL FEMALES 16 - 114 . 46 NORMAL RANGE MALES 2 - 12 NORMALLY MENSTRUATING FEMALES - Follicular Phase 1 - 18 - Mid-Cycle Peak 24 - 105 - Luteal Phase 0.6 - 20 POSTMENOPAUSAL FEMALES 15 - 62 . 47 ---- RUN DATE: 11/06/10 [facility] NMI LIVE PAGE 1 RUN TIME: 1546 Specimen Inquiry RUN USER: INTERFACE -- Name: ELVINAUDELIAROSEMARY Munoz#: [id number] Status: REG REF Re11/05/10 Age/Sex: 30/F Unit#: [id number] Location: [facility] : [birth year] -- Specimen: [id number] SOUT Spec Date: 11/05/[address]: Day ACEVES Spec Type: CYTOLOGY Received: 11/06/10-900 Copies to: SOURCE ECTOCERVICAL/ENDOCERVICAL Thin Prep with Reflex HPV Test PATIENT INFORMATION ACTUAL COLLECTION DATE: 11/05/10 ? No POST MENOPAUSAL? No HYSTERECTOMY? No PATIENT HISTORY: Last menstrual period patient not sure, maybe 6 months ago, Not . ADEQUACY OF SPECIMEN Unsatisfactory for evaluation * Specimen processed and examined, but unsatisfactory for evaluation of epi thelial * abnormality due to: * Insufficient epithelial component * DIAGNOSIS Please repeat. This Pap test was evaluated with the assistance of the [employer] Pap Test Imaging System. However, due to technical or cytologic issues, the imaging could not be completed. Comprehensive manual rescreening by a Junior High School Teacher was performed. The Pap Smear is a screening test designed to aid in the detection of premalign ant and malignant conditions of the uterine cervix. It is not a diagnostic procedure a nd should not be used as the sole means of detecting cervical cancer. Both false- positiv e and false-negative reports do occur. Depending on your risk status, a Pap smear arben uld be obtained and evaluated every one to three years. Initial evaluation performed by Tim CAM(ASCP) 11/06/10 -- DEPARTMENT OF PATHOLOGY, [address] [place] [address] [facility] Permit #[id number] Vance Rossi M.D. Director Bigg Redmond M.D. Issuer Dir lonny -- -- RUN DATE: 11/06/10 [facility] NMI LIVE PAGE 2 RUN TIME: 1546 Specimen Inquiry RUN USER: INTERFACE -- Name: ELVINAUDELIA M Status: REG REF Re11/05/10 Age/Sex: 30/F Unit#: [id number] Location: [facility] : [birth year] -- -- CONTINUED -- Final Interpretation electronically signed by: BIGG REDMOND 11/06/10 1546 -- -- DEPARTMENT OF PATHOLOGY, [address] [place] [address] [facility] Permit #[id number] Vance Rossi M.D. Director Bigg Redmond M.D. Issuer Dir lonny -- 48 25^10-25,000 ORGANISMS/ML (MODERATE)^CCU NORMAL ALFRED 25^10-25,000 ORGANISMS/ML (MODERATE)^CCU 49 If is still suspected, please repeat test after 48 to 72 hours. . 50 FINAL: NO GROWTH DAY 2 (<1,000 CFU/mL) 51 ---- RUN DATE: 08/20/09 [facility] NMI LIVE PAGE 1 RUN TIME: 1430 Specimen Inquiry RUN USER: INTERFACE -- Name: AUDELIA MOONEY Accgrace#: [id number] Status: REG REF Re08/16/09 Age/Sex: 29/F Unit#: [id number] Location: [facility] : [birth year] -- Specimen: [id number] SOUT Spec Date: 08/16/[address]: Zi sprague MD Spec Type: SURGICAL P Received: 08/19/09-1400 Copies to: Vamshi Camarena MD SPECIMEN BIOPSY GASTRIC ANTRUM HISTORY POST-OP DIAGNOSIS: Mild gastritis, abdominal pain CLINICAL INFORMATION: Abdominal pain, last 10 days okay GROSS DESCRIPTION The specimen is received in formalin labelled Audelia Preeti Negrete, Biopsy Gastric Antrum, and consists of two, mccoy, soft tissue fragments measuring 0.6 x 0.3 x 0.2 cm. Submitted entirely, one cassette. DIAGNOSIS Stomach, antrum, biopsy: A. Gastric antral mucosa with mild to moderate diffuse chronic inflammation. B. No active gastritis nor Helicobacter pylori-like organisms are identified. Signed Electronically by: VANCE ROSSI MD 08/20/09 1429 -- -- DEPARTMENT OF PATHOLOGY, [address] [place] [address], [place] [address] [facility] Permit #[id number] Vance Rossi M.D. Director Bigg Redmond M.D. Issuer Dir lonny -- 52 SCANT NORMAL URETHRAL OR PERINEAL ALFRED 53 SPECIMEN CONTAINS NORMAL URETHRAL OR PERINEAL ALFRED AND DOES NOT SUGGEST URINARY TRACT INFECTION 54 NEGATIVE FOR GROUP A BETA STREPTOCOCCUS 55 Anion gap measurement may be of limited value in the presence of any alkalosis, especially in a combined acid base disorder. . 56 If is still suspected, please repeat test after 48 to 72 hours. . 57 SPECIMEN CONTAINS NORMAL URETHRAL OR PERINEAL ALFRED AND DOES NOT SUGGEST URINARY TRACT INFECTION 75^50-75,000 ORGANISMS/ML (MANY)^CCU 58 SPECIMEN CONTAINS NORMAL URETHRAL OR PERINEAL ALFRED AND DOES NOT SUGGEST URINARY TRACT INFECTION 59 2-3 EPIS RBC'S TNTC 60 Anion gap measurement may be of limited value in the presence of any alkalosis, especially in a combined acid base disorder. . 61 Anion gap measurement may be of limited value in the presence of any alkalosis, especially in a combined acid base disorder. . Procedures Date Code Description Status 12/20/2013 51013 X-Ray Chest Two Views Completed 06/03/2004 07041 X-Ray Chest Two Views Completed Encounters Type Date Location Provider Dx Diagnosis Office Visit 02/13/2019 Main Office [place], L03.116 Cellulitis of left 8:40a P.A. lower limb Z68.30 Body mass index (BMI) 30.0-30.9, adult Office Visit 01/12/2014 9:45a Main Office Vamshi Camarena M.D. 786.2 Cough 461.9 Sinusitis Acute Unspec Office Visit 01/02/2014 8:55a Main Office Vamshi Camarena M.D. 786.2 Cough 786.05 Shortness Of Breath 461.9 Sinusitis Acute Unspec Office Visit 12/26/2013 11:30a Main Office Vamshi Camarena M.D. 786.2 Cough 786.05 Shortness Of Breath 780.60 Fever, Unspecified Office Visit 12/20/2013 11:00a Main Office Vamshi Camarena M.D. 786.2 Cough 780.60 Fever, Unspecified 461.9 Sinusitis Acute Unspec Office Visit 06/24/2012 9:00a Main Office Eduar Perkins 786.07 Wheezing V70.3 Examination Other Medical For Administrative Purpose V77.0 Screening Thyroid Disorders 281.9 Anemia Deficiency Unspec V04.81 Need For Prophylactic Vaccination & Inoculation/Influenza V07.2 Prophylactic Immunotherapy V06.1 Dtkvzawmcp-Hlrgcga-Uvjxwpjp Combined (DTaP) V74.1 Screening Examination Pulmonary Tuberculosis Office Visit 04/28/2011 10:45a Main Office Vamshi Camarena, 787.01 Nausea W/ M.D. Vomiting 789.2 Splenomegaly 724.5 Backache Unspec Office Visit 11/14/2010 9:00a Main Office Day [place] V72.31 Routine Gas Regulator Repairer P.A. Examination 462 Pharyngitis Acute 599.0 UTI Urinary Tract Infection Site Not Spec 626.0 Menstruation Absence V77.91 Screening For Lipoid Disorders 616.10 Vaginitis & Vulvovaginitis Unspec V69.2 Sexual Behavior High Risk 790.6 Abnormal Blood Chemistry Other Office Visit 06/05/2010 8:40a Main Office aDy Duggan, 465.9 URI Upper P.A. Respiratory Infections Acute Unspec Sites 599.0 UTI Urinary Tract Infection Site Not Spec 786.2 Cough Office Visit 08/05/2009 1:30p Main Office Vamshi Camarena, 789.01 Pain Abdominal M.D. Right Upper Quadrant 793.6 Nonspecific(Abnormal)Findings On Radiological,Abdominal Office Visit 07/06/2009 10:00a Main Office Vamshi Camarena, 789.01 Pain Abdominal M.D. Right Upper Quadrant 793.6 Nonspecific(Abnormal)Findings On Radiological,Abdominal Office Visit 07/02/2009 4:15p Main Office Vamshi Camarena, 789.01 Pain Abdominal M.D. Right Upper Quadrant 724.5 Backache Unspec 793.6 Nonspecific(Abnormal)Findings On Radiological,Abdominal Office Visit 06/28/2009 1:15p Main Office Vamshi Camarena, 053.9 Herpes Zoster W/O M.D. Complication 789.01 Pain Abdominal Right Upper Quadrant 793.6 Nonspecific(Abnormal)Findings On Radiological,Abdominal Office Visit 05/27/2009 3:00p Main Office Vamshi Camarena, 053.9 Herpes Zoster W/O M.D. Complication 466.0 Bronchitis Acute Office Visit 05/13/2009 5:00p Main Office [place] 053.9 Herpes Zoster W/ O Priti Bonds Complication Office Visit 04/30/2009 3:30p Main Office Navin Foster 487.1 Influenza W/ Other Priti Samuels Respiratory Manifestations 466.0 Bronchitis Acute Office Visit 06/22/2008 12:55p Main Office Vamshi Camarena, 465.9 URI Upper M.D. Respiratory Infections Acute Unspec Sites 787.0 Nausea And Vomiting 724.2 Lumbago Office Visit 04/11/2007 4:45p Main Office Vamshi Camarena, 923.11 Contusion Elbow M.D. 923.20 Contusion Hand(S) 923.20 Contusion Hand(S) 923.11 Contusion Elbow Office Visit 02/20/2005 3:00p Main Office Vamshi Camarena, 626.1 Menstruation Scanty M.D. Or Infrequent 790.5 Serum Enzyme Levels Abnormal Other Nonspec 285.8 Anemia Other Spec 346.10 Migraine Common W/O Intractable W/O Status Migrainosus Office Visit 01/19/2005 11:00a Main Office Vamshi Camarena, 787.01 Nausea W/ M.D. Vomiting 599.0 UTI Urinary Tract Infection Site Not Spec 788.1 Dysuria 789.07 Pain Abdominal Generalized 626.1 Menstruation Scanty Or Infrequent 790.5 Serum Enzyme Levels Abnormal Other Nonspec 346.10 Migraine Common W/O Intractable W/O Status Migrainosus Office Visit 01/14/2005 1:45p Main Office Vamshi Camarena, 787.01 Nausea W/ M.D. Vomiting 599.0 UTI Urinary Tract Infection Site Not Spec 788.1 Dysuria 789.07 Pain Abdominal Generalized 285.8 Anemia Other Spec 626.1 Menstruation Scanty Or Infrequent 790.5 Serum Enzyme Levels Abnormal Other Nonspec 784.0 Headache Office Visit 01/13/2005 2:45p Main Office Vamshi Camarena M.D. 723.1 Cervicalgia 599.0 UTI Urinary Tract Infection Site Not Spec 787.01 Nausea W/ Vomiting 788.1 Dysuria 789.07 Pain Abdominal Generalized 784.0 Headache 285.8 Anemia Other Spec 626.1 Menstruation Scanty Or Infrequent Office Visit 06/03/2004 1:55p Main Office Navin Samuels M.D. 786.2 Cough 466.0 Bronchitis Acute Office Visit 04/21/2004 10:45a Main Office Vamshi Camarena, 599.0 UTI Urinary Tract M.D. Infection Site Not Spec 285.8 Anemia Other Spec Office Visit 11/27/2003 2:30p Main Office Vamshi Camarena, 789.09 Pain Abdominal M.D. Other Spec Site 788.1 Dysuria Office Visit 11/14/2003 3:00p Main Office Vamshi Camarena, 789.09 Pain Abdominal M.D. Other Spec Site 626.1 Menstruation Scanty Or Infrequent 382.00 Otitis Media Suppurative Acute Office Visit 11/12/2003 1:30p Main Office Vamshi Camarena 789.09 Pain Abdominal M.D. Other Spec Site 788.1 Dysuria 626.1 Menstruation Scanty Or Infrequent Plan of Treatment Future Appointment(s):03/06/2019 9:40 am - Eduar Perkins at Main [id number] - Eduar PerkinsL03.116 Cellulitis of left lower limbComments:Of note: children with pt seemed happy, behaved and followed her directions, did not seem to be uncomfortable in the exam room in anyway.Follow up:discussed that appears will be able to cont the healing process w/o further [id number] Body mass index (BMI) 30.0-30.9, adultFollow up:schedule for physical
[2019-03-09 20:38] VITALS: BP 109/88
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
== END 2019-03-09 21:26 | disposition home or self-care (01) ==
LOC: UCEAST 20:21
DX: M79.641 Pain in right hand (principal); Z88.0 Allergy status to penicillin; Z88.1 Allergy status to other antibiotic agents; G80.9 Cerebral palsy, unspecified; Z87.891 Personal history of nicotine dependence
CPT/HCPCS: 99211; G0463